=== PATIENT | female | born 1940 | race Caucasian/White ===

== ENCOUNTER → 2016-05-07 | Outpatient (CLI) | payer BC ==
[~2016-05-07] MED LIST: ASPI325T45 PO; CALC1TAB9 PO; CHOL200010 PO; FAMO20TA11 PO; MULT-506 PO; POLY335025 PO; RABE20TA5 PO; VITAMIN B12 PO
--- NOTE | 2016-05-07 15:14 | DIAGNOSTIC IMAGING REPORT ---
[facility] CLINICAL HISTORY: R10.9 Abdominal painR15.9 Bowel [id number] [id number] pain COMPARISON STUDY: 12/26/2014 FINDINGS: Nonobstructive bowel pattern. Moderate fecal material throughout the colon. No evidence for obstructive change. No small bowel distention. Chronic calcification of the splenic vasculature. IMPRESSION: No acute process. Electronically signed by: Dominic Ramos M.D. 05/07/2016 3:12 PM Dictated Date/Time: 05/07/2016 3:12 PM
== END | disposition home or self-care (01) ==
LOC: C.RAD1850 14:42
PROVIDERS: ATTEND Registered Nurse
DX: R14.0 Abdominal distension (gaseous) (principal); R15.9 Full incontinence of feces; R10.9 Unspecified abdominal pain

== ENCOUNTER → 2016-05-17 | Outpatient (CLI) | payer BC ==
[2016-05-17 16:00] LABS: BLOOD UREA NITROGEN 15 mg/dl (7-18); BUN/CREATININE RATIO 13.3 (10-20); CALCIUM 9.2 mg/dl (8.5-10.1); CARBON DIOXIDE 27 mmol/L (21-32); CHLORIDE 103 mmol/L (98-107); GLUCOSE 99 mg/dl (70-99); SODIUM 138 mmol/L (136-145)
[2016-05-17 16:05] LABS: ALB/GLOB RATIO 1.2 (0.9-2); ALKALINE PHOSPHATASE 51 U/L (45-117); ALT/SGPT 18 U/L (12-78); AST/SGOT 11 U/L (15-37)
== END | disposition home or self-care (01) ==
LOC: C.LAB1850 14:36
PROVIDERS: ATTEND Internal Medicine
DX: R10.9 Unspecified abdominal pain (principal)

== ENCOUNTER → 2016-05-20 | Outpatient (CLI) | payer BC ==
[~2016-05-20] MED LIST changes: +OPTIRAY 320 IV PRN
--- NOTE | 2016-05-20 10:51 | DIAGNOSTIC IMAGING REPORT ---
ABDOMEN AND PELVIS CT WITH IV AND ORAL CONTRAST CT DOSE: 265.40 mGy.cm HISTORY: R10.9 Abdominal painR19.4 Change in bowel [id number] TECHNIQUE: Multiaxial CT images of the abdomen and pelvis were performed following the use of intravenous and oral contrast. COMPARISON STUDY: 10/19/2012 FINDINGS: The lung bases are clear. The liver, spleen, gallbladder, pancreas, kidneys, and adrenal glands are within normal limits. No bowel wall thickening or obstruction. The pelvic organs are unremarkable. No suspicious lytic or blastic osseous lesions. The left kidney is perhaps slightly progressive atrophic as compared to the rectus is unchanged. Right renal cyst unchanged from the prior study. Bowel pattern is nonobstructive. Persistent increase in fecal load throughout the colon. No significant abdominal pelvic or inguinal adenopathy. IMPRESSION: 1. Stable right renal cyst. 2. Nonobstructive bowel pattern although persistent increase in fecal load is present. 3. No new or interval process. Electronically signed by: Dominic Ramos M.D. 05/20/2016 10:50 AM Dictated Date/Time: 05/20/2016 10:39 AM
== END | disposition home or self-care (01) ==
LOC: C.CTS 10:01
PROVIDERS: ATTEND Internal Medicine
DX: R19.4 Change in bowel habit (principal); R10.9 Unspecified abdominal pain; N28.1 Cyst of kidney, acquired; K59.00 Constipation, unspecified

== ENCOUNTER → 2016-06-14 | Day surgery (SDC) | payer BC ==
[2016-06-11 07:44] VITALS: Ht 165.1 cm; Wt 52.7 kg
[~2016-06-14] VITALS: Ht 165.1 cm; Wt 52.7 kg
[~2016-06-14] MED LIST changes: +LIDOCAINE HCL 2% 2 ML VIAL (20MG/ML) ONE; +MIDAZOLAM HCL 1 MG/ML 2ML VIAL ONE; +ONDANSETRON INJ 2 MG/ML 2 ML VIAL ONE; -OPTIRAY 320 IV PRN; +PROPOFOL IV EMULSION 10 MG/ML 20 ML VIAL IV ONE
[2016-06-14 12:45] VITALS: TEMP 36.7
--- NOTE | 2016-06-14 13:22 | Endo History and Physical ---
History & Physical Date of Service: Jun 14, 2016. Chief Complaint: CHANGE IN BOWEL HABITS, LEFT SIDED ABDOMINAL PAIN Referring Physician: DR. BYRD History of Present Illness 76 yo CF who presents for Colonoscopy secondary to Left sided abdominal pain and change in bowel habits. Past Medical History Osteoporosis, Gastrointestinal Disorder, Reflux, Cancer, High Cholesterol, Other Past Surgical History Hx Cardiac Surgery: No Hx Internal Defibrillator: No Hx Pacemaker: No Hx Abdominal Surgery: Yes (TUBAL LIGATION) Hx of Implantable Prosthesis: No Hx Post-Op Nausea and Vomiting: Yes Hx Cancer Surgery: Yes (BCC REMOVED) Hx Thoracic Surgery: No Hx Orthopedic: Yes (CALCIUM DEPOSIT REMOVAL ON RT HAND X 2) Hx Urinary Tract Surgery: No Family History None Social History Smoking Status: Never Smoker Hx Substance Use: No Hx Alcohol Use: No Allergies Coded Allergies: Fluorouracil (Unverified Allergy, Intermediate, HOT FLASHES, 06/14/16) Codeine (Verified Allergy, Mild, SICK, 06/11/16) Erythromycin (Verified Allergy, Mild, GI SYMPTOMS, 06/11/16) Meperidine (Verified Allergy, Mild, GI SYMPTOMS, 06/11/16) Esomeprazole (Verified Allergy, Unknown, HOT FLASHES, 06/11/16) Lansoprazole (Verified Allergy, Unknown, HOT FLASHES, 06/11/16) Omeprazole (Verified Allergy, Unknown, HOT FLASHES, 06/11/16) Pantoprazole (Verified Allergy, Unknown, HOT FLASHES AND HYPER, 06/11/16) Current Medications Reported Home Medications Medications Dose Route/Sig Max Daily Dose Days Date Category Pepcid (Famotidine) 20 Mg Tab 20 Mg PO HS 12/12/15 Reported [Vitamin B12] 1 Tab PO DAILY AT LUNCH 12/12/15 Reported Aspirin 325 Mg Tab 0.25 Tab PO QAM 12/12/15 Reported Vitamin D (Cholecalciferol) 2,000 Unit Cap 1 Cap PO DAILY AT LUNCH 12/12/15 Reported Citracal + D3 Maximum (Calcium Citrate-Vitamin D) 1 Tab Tab 1 Tab PO QAM 12/12/15 Reported Multivitamin (Multivitamins) Tab 1 Tab PO QAM 12/12/15 Reported Aciphex (Rabeprazole Sodium) 20 Mg Tab 1 Tab PO BID 90 12/12/15 Reported Miralax (Polyethylene Glycol 3350) 1 Pow Pow 17 Gm PO QAM PRN 10/29/13 Reported Vital Signs Weight (Kilograms): 52.73 Height (Feet): 5 Height (Inches): 5 Date Time Temp Pulse Resp B/P Pulse Ox O2 Delivery O2 Flow Rate FiO2 06/14/16 12:45 36.7 83 16 148/79 98 Room Air Physical Exam General Appearance: WD/WN, no apparent distress Respiratory/Chest: Auscultation: breath sounds normal Cardiovascular: Heart Auscultation: RRR Abdomen: Bowel Sounds: normal Inspection & Palpation: soft, non-distended, no tenderness, guarding & rebound Assessment and Plan Assessment: 76 yo CF who presents for Colonoscopy secondary to Left sided abdominal pain and change in bowel habits. Plan: Proceed with colonoscopy.
--- NOTE | 2016-06-14 13:52 | GI REPORT ---
Procedure Date: 06/14/2016 1:14 PM Procedure: Colonoscopy Indications: Generalized abdominal pain, Change in bowel habits Medicines: Monitored Anesthesia Care Complications: No immediate complications. Estimated Blood Loss: Estimated blood loss: none. Procedure: Pre-Anesthesia Assessment: - Prior to the procedure, a History and Physical was performed, and patient medications and allergies were reviewed. The patient's tolerance of previous anesthesia was also reviewed. The risks and benefits of the procedure and the sedation options and risks were discussed with the patient. All questions were answered, and informed consent was obtained. Prior Anticoagulants: The patient has taken aspirin, last dose was 3 days prior to procedure. ASA Grade Assessment: II - A patient with mild systemic disease. After reviewing the risks and benefits, the patient was deemed in satisfactory condition to undergo the procedure. After I obtained informed consent, the scope was passed under direct vision. Throughout the procedure, the patient's blood pressure, pulse, and oxygen saturations were monitored continuously. The On-site loaner was introduced through the anus and advanced to the terminal ileum. The colonoscopy was performed without difficulty. The patient tolerated the procedure well. The quality of the bowel preparation was good. The terminal ileum, ileocecal valve, appendiceal orifice, and rectum were photographed. Findings: Non-bleeding internal hemorrhoids were found during retroflexion. The hemorrhoids were small. Several random biopsies were obtained with cold forceps for histology in the entire colon. Impression: - Non-bleeding internal hemorrhoids. - Several random biopsies were obtained in the entire colon. Recommendation: - Resume previous diet. - Continue present medications. - Repeat colonoscopy for surveillance based on pathology results. - Return to primary care physician as previously scheduled. Archie Ogden, 06/14/2016 1:52:04 PM This report has been signed electronically. Note Initiated On: 06/14/2016 1:14 PM I attest to the content of the Intraoperative Record and orders documented therein, exceptions below
--- NOTE | 2016-06-14 13:53 | Anesthesiology Progress Note ---
Anesthesia Post Op Note Date & Time Jun 14, 2016 at 13:52 Vital Signs Pain Intensity: 0 Vital Signs Past 12 Hours Date Time Temp Pulse Resp B/P Pulse Ox O2 Delivery O2 Flow Rate FiO2 06/14/16 12:45 36.7 83 16 148/79 98 Room Air Notes Mental Status: alert / awake / arousable, participated in evaluation Pt Amnestic to Procedure: Yes Nausea / Vomiting: adequately controlled Pain: adequately controlled Airway Patency, RR, SpO2: stable & adequate BP & HR: stable & adequate Hydration State: stable & adequate Anesthetic Complications: no major complications apparent
--- NOTE | 2016-06-14 13:53 | Discharge Instructions ---
Endoscopy Patient Instructions Date / Procedure(s) Performed Jun 14, 2016. Colonoscopy Allergy Information Coded Allergies: Fluorouracil (Unverified Allergy, Intermediate, HOT FLASHES, 06/14/16) Codeine (Verified Allergy, Mild, SICK, 06/11/16) Erythromycin (Verified Allergy, Mild, GI SYMPTOMS, 06/11/16) Meperidine (Verified Allergy, Mild, GI SYMPTOMS, 06/11/16) Esomeprazole (Verified Allergy, Unknown, HOT FLASHES, 06/11/16) Lansoprazole (Verified Allergy, Unknown, HOT FLASHES, 06/11/16) Omeprazole (Verified Allergy, Unknown, HOT FLASHES, 06/11/16) Pantoprazole (Verified Allergy, Unknown, HOT FLASHES AND HYPER, 06/11/16) Discharge Date / Findings Jun 14, 2016. Random colon biopsies Internal hemorrhoids Medication Instructions Stopped Medication(s): ASPIRIN STOPPED 06/11/16 OK to resume all medications today as prescribed. Reported Home Medications Medications Dose Route/Sig Max Daily Dose Days Date Category Pepcid (Famotidine) 20 Mg Tab 20 Mg PO HS 12/12/15 Reported [Vitamin B12] 1 Tab PO DAILY AT LUNCH 12/12/15 Reported Aspirin 325 Mg Tab 0.25 Tab PO QAM 12/12/15 Reported Vitamin D (Cholecalciferol) 2,000 Unit Cap 1 Cap PO DAILY AT LUNCH 12/12/15 Reported Citracal + D3 Maximum (Calcium Citrate-Vitamin D) 1 Tab Tab 1 Tab PO QAM 12/12/15 Reported Multivitamin (Multivitamins) Tab 1 Tab PO QAM 12/12/15 Reported Aciphex (Rabeprazole Sodium) 20 Mg Tab 1 Tab PO BID 90 12/12/15 Reported Miralax (Polyethylene Glycol 3350) 1 Pow 17 Gm PO QAM PRN 10/29/13 Reported Provider Instructions Activity Restrictions - No exercising or heavy lifting for 24 hours. - Do not drink alcohol the day of the procedure. - Do not drive a car or operate machinery until the day after the procedure. - Do not make any important decisions or sign important papers in 24 hours after the procedure. Following Day: - Return to full activity which may include returning to work/school. Diet Start your diet with liquids and light foods (jello, soup, juice, toast). Then eat your usual diet if not nauseated. Treatment For Common After Affects For mild abdominal pain, bloating, or excessive gas: - Rest - Eat lightly - Lie on right side Follow-Up Information Follow-up with DR. BYRD as scheduled Anesthesia Information What You Should Know You have had a procedure that required some medicine to reduce anxiety and discomfort. This treatment is called moderate sedation. After receiving the treatment, you may be sleepy, but you will be able to breathe on your own. The effects of the treatment may last for several hours. Follow these instructions along with Activity/Diet recommendations noted above: * Do NOT do anything where dizziness or clumsiness would be dangerous. * Rest quietly at home today, then you can be up and about tomorrow. * Have a responsible person stay with you the rest of today. * You may have had an I.V. today. If so, you may take the dressing off later today. Recommendations Call your doctor if: * Trouble breathing * Continuous vomiting for more than 24 hours * Temperature above 101 degrees * Severe abdominal pain or bloating * Pain not relieved by pain medicine ordered * There is increased drainage or redness from any incision * A large amount of rectal bleeding greater than 2-3 tablespoons. (If you had a polyp/s removed or have hemorrhoids, a small amount of blood - from the rectum is to be expected.) * You have any unanswered questions or concerns. IN THE EVENT OF A SERIOUS EMERGENCY, GO TO THE NEAREST EMERGENCY ROOM Your discharge instructions were prepared by provider Archie Ogden. Patient Instructions Signature Page Mercedes Lyndsay Patient (or Guardian) Signature/Date: I have read and understand the instructions given to me by my caregivers. Caregiver/RN/Doctor Signature/Date: The above-named patient and/or guardian has received patient instructions on this date. + Original Patient Signature Page (only) stays with chart. Please make copy for patient.
[2016-06-14 14:15] VITALS: BP 119/61; PULSE 64; O2SAT 95
== END | disposition home or self-care (01) ==
LOC: C.GI 12:02
PROVIDERS: ATTEND Internal Medicine
DX: R19.4 Change in bowel habit (principal); R10.9 Unspecified abdominal pain; K64.8 Other hemorrhoids; M81.0 Age-related osteoporosis without current pathological fracture; K21.9 Gastro-esophageal reflux disease without esophagitis; Z98.51 Tubal ligation status; Z85.820 Personal history of malignant melanoma of skin; Z88.8 Allergy status to other drugs, medicaments and biological substances; Z88.5 Allergy status to narcotic agent; Z88.1 Allergy status to other antibiotic agents

== ENCOUNTER → 2016-10-12 | Outpatient (CLI) | payer BC ==
[~2016-10-12] MED LIST changes: -LIDOCAINE HCL 2% 2 ML VIAL (20MG/ML) ONE; -MIDAZOLAM HCL 1 MG/ML 2ML VIAL ONE; -ONDANSETRON INJ 2 MG/ML 2 ML VIAL ONE; -PROPOFOL IV EMULSION 10 MG/ML 20 ML VIAL IV ONE
--- NOTE | 2016-10-12 13:07 | MAMMOGRAPHY REPORT ---
BILATERAL DIGITAL SCREENING MAMMOGRAM WITH CAD: 10/12/2016 CLINICAL HISTORY: Routine screening. Patient has no complaints. TECHNIQUE: Bilateral CC and MLO views were obtained. Current study was also evaluated with a Compute r Aided Detection (CAD) system. COMPARISON: Comparison is made to exams dated: 10/07/2015 mammogram, 10/01/2014 mammogram, 09/11/2013 ma mmogram, 09/05/2012 mammogram, 08/31/2011 mammogram, and 08/25/2010 mammogram - [facility] ter. BREAST COMPOSITION: The tissue of both breasts is heterogeneously dense, which may obscure small mas ses. FINDINGS: There are benign coarse and rim calcifications in the breasts. A stable lobulated and circ umscribed 10 mm mass in the upper inner quadrant of the left breast is unchanged in size and appearan ce dating back to at least 06/20/2007, therefore likely benign. No new suspicious mass, architectura l distortion or cluster of microcalcifications is seen. IMPRESSION: ACR BI-RADS CATEGORY 1: NEGATIVE There is no mammographic evidence of malignancy. A 1 year screening mammogram is recommended. The pa tient will receive written notification of the results. Approximately 10% of breast cancers are not detected with mammography. A negative mammographic report should not delay biopsy if a clinically suggestive mass is present. Julia Balderrama M.D. ay/:10/12/2016 10:01:41 Credit Controller: Aaliyah JAMES(Rylee)(Xavier)(BD), [facility] letter sent: Normal 1/2 BI-RADS Code: ACR BI-RADS Category 1: Negative
== END | disposition home or self-care (01) ==
LOC: C.MAMM 09:33
PROVIDERS: ATTEND Family Medicine
DX: Z12.31 Encounter for screening mammogram for malignant neoplasm of breast (principal)

== ENCOUNTER → 2016-11-24 | Outpatient (CLI) | payer BC ==
--- NOTE | 2016-11-24 09:25 | DIAGNOSTIC IMAGING REPORT ---
RIGHT HIP UNILATERAL 2 VIEWS HISTORY: 76 years-old Female acute right-sided hip pain. COMPARISON: KUB 05/07/2016 TECHNIQUE: 2 views of the right hip. FINDINGS: The bones are mildly demineralized. Mild degenerative changes involve the right femoral acetabular joint. There is no acute fracture or dislocation. Probable phleboliths are seen within the right hemipelvis. Negative for opaque foreign body. IMPRESSION: 1. Mild right hip osteoarthritis without acute bony abnormality. 2. Mild background bone demineralization. The above report was generated using voice recognition software. It may contain grammatical, syntax or spelling errors. Electronically signed by: Dario Guardado M.D. 11/24/2016 9:24 AM Dictated Date/Time: 11/24/2016 9:22 AM
== END | disposition home or self-care (01) ==
LOC: C.RAD 09:07
PROVIDERS: ATTEND Family Medicine
DX: M25.551 Pain in right hip (principal)

== ENCOUNTER → 2016-12-28 | Outpatient (CLI) | payer BC ==
[2016-12-28 12:20] LABS: HEMATOCRIT 41.2 % (37-47); MEAN CELL VOLUME 91.2 fL (80-100); MEAN CORPUSCULAR HEMOGLOBIN 30.1 pg (25-34); MEAN PLATELET VOLUME 9.6 fL (7.4-10.4); PLATELET COUNT 230 K/uL (130-400); RED BLOOD COUNT 4.52 M/uL (4.2-5.4); WHITE BLOOD COUNT 6.09 K/uL (4.8-10.8)
[2016-12-28 12:43] LABS: ALT/SGPT 18 U/L (12-78); AST/SGOT 13 U/L (15-37); BLOOD UREA NITROGEN 15 mg/dl (7-18); BUN/CREATININE RATIO 15.2 (10-20); CALCIUM 9.3 mg/dl (8.5-10.1); CARBON DIOXIDE 28 mmol/L (21-32); CHLORIDE 104 mmol/L (98-107); CREATININE 0.98 mg/dl (0.60-1.20); GLUCOSE 133 mg/dl (70-99); POTASSIUM 4.3 mmol/L (3.5-5.1); SODIUM 137 mmol/L (136-145)
[2016-12-28 12:46] LABS: ALB/GLOB RATIO 1.2 (0.9-2); ALKALINE PHOSPHATASE 50 U/L (45-117)
== END | disposition home or self-care (01) ==
LOC: C.CPL 10:00
PROVIDERS: ATTEND Internal Medicine Gastroenterology
DX: K31.84 Gastroparesis (principal); R00.1 Bradycardia, unspecified

== ENCOUNTER → 2017-07-13 | Outpatient (CLI) | payer BC ==
[~2017-07-13] MED LIST changes: +ASPECOTC PO; -ASPI325T45 PO
--- NOTE | 2017-07-13 14:35 | ECHOCARDIOGRAM REPORT ---
*NOTICE TO RECEIVING LIBERTARIAN AGENCY This information is strictly Confidential and protected under [place] law. [place] law prohibits you from making any further disclosure of this information unless further disclosure is expressly permitted by the written consent of the person to whom it pertains or is authorized by law. A general authorization for the release of medical or other information is not sufficient for this purpose. Hospital accepts no responsibility if the information is made available to any other person, INCLUDING THE PATIENT. Interpretation Summary * Name: GIULIANA JOHNSON V Study Date: 07/13/2017 12:35 PM BP: 150/60 mmHg * Patient Location: [facility] HR: 71 * : 1940 (M/d/yyyy) Gender: Female Height: 65 in * Age: 77 yrs Ethnicity: CA Weight: 120 lb * Ordering Physician: Jacque Gooden * Referring Physician: Nelson Napoles * Performed By: Sole Miller RDCS * * Reason For Study: SCLERODERMA * BSA: 1.6 m2 * -- Conclusions -- * 1. Normal LV size. Normal LV wall thickness. * 2. Normal LV systolic function. LVEF 55-60 %. No regional wall motion abnormalities. * 3. Borderline RV dilation, normal RV function. * 4. Calcified nodule on anterior leaflet of mitral valve. Trace mitral regurgitation * 5. Normal estimated PA and RA pressures. * 6. Compared with prior study on 07/29/2014: No significant change Procedure Details * A complete two-dimensional transthoracic echocardiogram was performed (2D, M-mode, Doppler and color flow Doppler). Left Ventricle * The left ventricle is grossly normal size. * There is normal left ventricular wall thickness. * Ejection Fraction = 60-65%. Right Ventricle * Borderline right ventricular enlargement. * The right ventricular systolic function is normal as assessed by tricuspid annular plane systolic excursion (TAPSE) (normal >1.5 cm). Atria * The left atrial size is normal. * The right atrium is mildly dilated. * Lipomatous hypertrophy of the interatrial septum is noted. * No ASD detected; PFO is not assessed. Mitral Valve * The mitral valve leaflets appear thickened, but open well. * There is mild mitral annular calcification. * Calcified nodule on anterior leaflet of mitral valve * There is no mitral valve stenosis. * There is trace mitral regurgitation. Tricuspid Valve * There is trace tricuspid regurgitation. Aortic Valve * The aortic valve opens well. * The aortic valve is trileaflet. * No hemodynamically significant valvular aortic stenosis. * There is no significant aortic regurgitation. Pulmonic Valve * The pulmonic valve is not well seen, but is grossly normal. * Trace pulmonic valvular regurgitation. Great Vessels * The aortic root and proximal ascending aorta are normal sized. Pericardium/Pleural * There is no pericardial effusion. Great Vessels * Normal inferior vena cava size and collapsability with sniff indicates a normal right atrial pressure of 3 mmHg * There is no evidence of pulmonary hypertension. The PA systolic pressure is less than 36 mmHg. MMode 2D Measurements and Calculations IVSd 0.97 cm IVSs 1.5 cm LVIDd 4.1 cm LVIDs 2.7 cm LVPWd 1.1 cm LVPWs 1.5 cm IVS/LVPW 0.90 FS 33.1 % EDV(Teich) 72.9 ml ESV(Teich) 27.5 ml EF(Teich) 62.2 % EDV(cubed) 67.4 ml ESV(cubed) 20.2 ml EF(cubed) 70.1 % % IVS thick 50.0 % % LVPW thick 41.1 % LV mass(C)d 136.1 grams LV mass(C)dI 85.5 grams/m\S\2 LV mass(C)s 139.0 grams LV mass(C)sI 87.3 grams/m\S\2 SV(Teich) 45.4 ml SI(Teich) 28.5 ml/m\S\2 SV(cubed) 47.2 ml SI(cubed) 29.7 ml/m\S\2 Ao root diam 3.1 cm Ao root area 7.7 cm\S\2 LA dimension 3.1 cm LA/Ao 10 LVAd ap4 20.1 cm\S\2 LVLd ap4 6.7 cm EDV(MOD-sp4) 50.9 ml EDV(sp4-el) 51.2 ml LVAs ap4 11.5 cm\S\2 LVLs ap4 5.7 cm ESV(MOD-sp4) 19.3 ml ESV(sp4-el) 19.6 ml EF(MOD-sp4) 62.0 % EF(sp4-el) 61.7 % LVAd ap2 19.9 cm\S\2 LVLd ap2 6.7 cm EDV(MOD-sp2) 47.3 ml EDV(sp2-el) 50.2 ml LVAs ap2 11.9 cm\S\2 LVLs ap2 6.1 cm ESV(MOD-sp2) 19.3 ml ESV(sp2-el) 19.6 ml EF(MOD-sp2) 59.1 % EF(sp2-el) 60.9 % LVLd %diff -0.49 % EDV(MOD-bp) 49.5 ml LVLs %diff 5.6 % ESV(MOD-bp) 19.5 ml EF(MOD-bp) 60.6 % SV(MOD-sp4) 31.5 ml SI(MOD-sp4) 19.8 ml/m\S\2 SV(MOD-sp2) 28.0 ml SI(MOD-sp2) 17.6 ml/m\S\2 SV(MOD-bp) 30.0 ml SI(MOD-bp) 18.8 ml/m\S\2 SV(sp4-el) 31.6 ml SI(sp4-el) 19.8 ml/m\S\2 SV(sp2-el) 30.6 ml SI(sp2-el) 19.2 ml/m\S\2 Doppler Measurements and Calculations MV E max oscar 104.1 cm/sec MV A max oscar 112.2 cm/sec MV E/A 0.93 MV dec time 0.22 sec Ao V2 max 140.6 cm/sec Ao max PG 7.9 mmHg Ao max PG (full) 4.0 mmHg LV V1 max PG 3.9 mmHg LV V1 max 98.7 cm/sec TR max oscar 224.2 cm/sec
== END | disposition home or self-care (01) ==
LOC: C.CPL 12:23
PROVIDERS: ATTEND Internal Medicine Rheumatology
DX: M34.1 CR(E)ST syndrome (principal)

== ENCOUNTER 2017-08-12 12:55 | Emergency (ER) | payer BC ==
[~2017-08-12] VITALS: Ht 165.1 cm; Wt 55.7 kg
[~2017-08-12 12:55] MED LIST changes: +DOMPERIDONE PO; +LUBI8CAP4 PO
[2017-08-12 12:59] VITALS: TEMP 36.7; Ht 165.1 cm; Wt 55.7 kg
[2017-08-12 13:10] VITALS: O2SAT 97
--- NOTE | 2017-08-12 13:15 | EMERGENCY ROOM VISIT NOTE ---
History Report prepared by Carson: Josiah Obregon Under the Supervision of: Dr. Sunil Cooper D.O. First contact with patient: 13:04 Chief Complaint: CHEST PAIN Stated Complaint: CHEST PAIN History of Present Illness The patient is a 77 year old female who presents to the Emergency Room with complaints of a waxing and waning pain in the left side of her chest, under her left breast that onset shortly prior to arrival. The patient describes the pain as a "pinching" feeling. She states that the pain fist onset for about 4-5 minutes, and then resolved. The pain then returned again on her ride to the ED, but the pain is now completely resolved. There is nothing that seems to precipitate the pain. The patient notes that her symptoms began when she was doing yard work earlier today. 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 She denies any abdominal pain, shortness of breath, or nausea /vomiting. Source of History: patient Onset: shortly GED TEACHER Position: chest (left) Quality: other (pinching) Timing: waxes/wanes, resolved Associated Symptoms: No chest pain, No SOB Review of Systems See HPI for pertinent positives & negatives. A total of 10 systems reviewed and were otherwise negative. Past Medical & Surgical Hx of Scleroderma, Raynaud's. Family History Omitted secondary to age. Social History Smoking Status: Never Smoker Marital Status: Housing Status: lives with family Occupation Status: retired Current/Historical Medications Scheduled Aspirin (Aspirin), 0.25 TAB PO QAM Calcium Citrate-Vitamin D (Citracal + D3 Maximum), 1 TAB PO QAM Cholecalciferol (Vitamin D), 1 CAP PO QAM Cyanocobalamin (Vitamin B12), 1,000 MCG PO DAILY Famotidine (Pepcid), 20 MG PO HS Lubiprostone (Amitiza), 1 CAP PO BID Multivitamin (Multivitamin), 1 TAB PO QAM Rabeprazole Sodium (Aciphex), 1 TAB PO BID [Domperidone], PO TIDM Allergies Coded Allergies: Fluorouracil (Unverified Allergy, Intermediate, HOT FLASHES, 08/12/17) Codeine (Verified Allergy, Mild, SICK, 08/12/17) Erythromycin (Verified Allergy, Mild, GI SYMPTOMS, 08/12/17) Meperidine (Verified Allergy, Mild, GI SYMPTOMS, 08/12/17) Esomeprazole (Verified Allergy, Unknown, HOT FLASHES, 08/12/17) Lansoprazole (Verified Allergy, Unknown, HOT FLASHES, 08/12/17) Omeprazole (Verified Allergy, Unknown, HOT FLASHES, 08/12/17) Pantoprazole (Verified Allergy, Unknown, HOT FLASHES AND HYPER, 08/12/17) Physical Exam Vital Signs Date Time Temp Pulse Resp B/P (MAP) Pulse Ox O2 Delivery O2 Flow Rate FiO2 08/12/17 13:30 73 20 141/90 99 Room Air 08/12/17 13:18 80 08/12/17 13:10 97 Room Air 08/12/17 13:10 97 Room Air 08/12/17 13:10 97 Room Air 08/12/17 12:59 36.7 91 16 152/83 96 Room Air Physical Exam GENERAL: Patient is awake, alert, and in no acute distress. Patient is resting comfortably and showing no signs of anxiety EYES: The conjunctivae are clear. The pupils are round and reactive. EARS, NOSE, MOUTH AND THROAT: The nose is without any evidence of any deformity. Mucous membranes are moist tongue is midline NECK: The neck is nontender and supple. RESPIRATORY: Normal respiratory effort is noted there is no evidence of wheezing rhonchi or rales CARDIOVASCULAR: Regular rate and rhythm noted there no murmurs rubs or gallops normal S1 normal S2 GASTROINTESTINAL: The abdomen is soft. Bowel sounds are present in all quadrants. Abdomen is nontender MUSCULOSKELETAL/EXTREMITIES: There is no evidence of gross deformity full range of motion is noted in the hips and shoulders SKIN: There is no obvious evidence of any rash. There are no petechiae, pallor or cyanosis noted. NEUROLOGIC: Patient is awake alert and oriented x3 Heart Score: 4 Medical Decision & Procedures ER Provider Diagnostic Interpretation: Radiology results as stated below per my review and radiologist interpretation: CHEST ONE VIEW PORTABLE CLINICAL HISTORY: 77 years-old Female presenting with CHEST PAIN. TECHNIQUE: Portable upright AP view of the chest was obtained. COMPARISON: 12/26/2014. FINDINGS: Atherosclerosis of aortic arch. Cardiac silhouette mildly enlarged. No focal opacity. No large effusion or pneumothorax. Osseous structures normal. Upper abdomen normal. IMPRESSION: 1. Mild cardiomegaly. No other convincing evidence of acute cardiopulmonary disease. Electronically signed by: Dayton Patel M.D. 08/12/2017 1:34 PM Dictated Date/Time: 08/12/2017 1:33 PM Laboratory Results 08/12/17 13:15 Red Blood Count 4.11, Mean Corpuscular Volume 89.8, Mean Corpuscular Hemoglobin 31.4, Mean Corpuscular Hemoglobin Concent 35.0, Mean Platelet Volume 8.9, Neutrophils (%) (Auto) 57.6, Lymphocytes (%) (Auto) 23.3, Monocytes (%) (Auto) 12.9, Eosinophils (%) (Auto) 4.7, Basophils (%) (Auto) 1.3, Neutrophils # (Auto ) 3.59, Lymphocytes # (Auto) 1.45, Monocytes # (Auto) 0.80, Eosinophils # (Auto ) 0.29, Basophils # (Auto) 0.08 08/12/17 13:15 Test 08/12/17 13:15 08/12/17 13:25 White Blood Count 6.22 K/uL (4.8-10.8) Red Blood Count 4.11 M/uL (4.2-5.4) Hemoglobin 12.9 g/dL (12.0-16.0) Hematocrit 36.9 % (37-47) Mean Corpuscular Volume 89.8 fL (80-100) Mean Corpuscular Hemoglobin 31.4 pg (25-34) Mean Corpuscular Hemoglobin Concent 35.0 g/dl (32-36) Platelet Count 203 K/uL (130-400) Mean Platelet Volume 8.9 fL (7.4-10.4) Neutrophils (%) (Auto) 57.6 % Lymphocytes (%) (Auto) 23.3 % Monocytes (%) (Auto) 12.9 % Eosinophils (%) (Auto) 4.7 % Basophils (%) (Auto) 1.3 % Neutrophils # (Auto) 3.59 K/uL (1.4-6.5) Lymphocytes # (Auto) 1.45 K/uL (1.2-3.4) Monocytes # (Auto) 0.80 K/uL (0.11-0.59) Eosinophils # (Auto) 0.29 K/uL (0-0.5) Basophils # (Auto) 0.08 K/uL (0-0.2) RDW Standard Deviation 44.2 fL (36.4-46.3) RDW Coefficient of Variation 13.4 % (11.5-14.5) Immature Granulocyte % (Auto) 0.2 % Immature Granulocyte # (Auto) 0.01 K/uL (0.00-0.02) Prothrombin Time 10.9 SECONDS (9.0-12.0) Prothromb Time International Ratio 1.0 (0.9-1.1) Activated Partial Thromboplast Time 26.1 SECONDS (21.0-31.0) Partial Thromboplastin Ratio 1.0 Anion Gap 5.0 mmol/L (3-11) Est Creatinine Clear Calc Drug Dose 35.1 ml/min Estimated GFR () 51.5 Estimated GFR (Non- 44.5 BUN/Creatinine Ratio 13.6 (10-20) Calcium Level 8.9 mg/dl (8.5-10.1) Total Bilirubin 0.3 mg/dl (0.2-1) Direct Bilirubin < 0.1 mg/dl (0-0.2) Aspartate Amino Transf (AST/SGOT) 18 U/L (15-37) Alanine Aminotransferase (ALT/SGPT) 19 U/L (12-78) Alkaline Phosphatase 49 U/L (45-117) Total Protein 7.2 gm/dl (6.4-8.2) Albumin 3.8 gm/dl (3.4-5.0) Lipase 190 U/L (73-393) Bedside D-Dimer 262 ng/mlFEU (0-450) Bedside Troponin I < 0.030 ng/ml (0-0.045) Laboratory results per my review. ECG Per My Interpretation Indication: chest pain Rate (beats per minute): 88 Rhythm: sinus rhythm Findings: nonspecific-ST abn (Inferior and lateral leads) Comparison ECG Date: 12-28-2016 Change: no significant change ED Course 1306: The patient was evaluated in room B3B. A complete history and physical examination were performed. 1401: Upon reevaluation, the patient is resting in bed. I discussed the results and treatment plan with her. She verbalized agreement of the treatment plan. the patient was discharged home. Medical Decision Differential diagnosis: Etiologies such as cardiac ischemia, aortic dissection, pulmonary embolism, pneumonia, pneumothorax, musculoskeletal, infections, pericarditis, myocarditis , esophageal rupture, gastrointestinal, as well as others were entertained. Nursing notes reviewed. The patient is a 77-year-old female who presented to emergency department for an evaluation of chest pain. The patient describes very atypical sounding chest pain with a pinching sensation under her left breast. It was somewhat pleuritic but it was not completely reproducible. I discussed patient's laboratory and radiographic studies with her. I also discussed the limitations of the emergency department workup for chest pain with her. At this time her d- dimer and troponin were negative. Her EKG appears very similar to her previous EKG. I discussed options with her including observation in the hospital for further cardiac workup but the patient wished to follow-up with her primary care physician to schedule outpatient testing such as stress testing. She was encouraged to rest and avoid any strenuous activity. I also encouraged her to continue all medications as prescribed. Otherwise she was encouraged to return the emergency department immediately if symptoms change worsen or the need arises. Medication Reconcilliation Current Medication List: was personally reviewed by me Blood Pressure Screening Patient's blood pressure: Elevated blood pressure Impression Primary Impression: Chest pain Scribe Attestation The scribe's documentation has been prepared under my direction and personally reviewed by me in its entirety. I confirm that the note above accurately reflects all work, treatment, procedures, and medical decision making performed by me. Departure Information Dispostion Home / Self-Care Referrals Shanita Graham D.O. (PCP) Patient Instructions My [facility] Problem Qualifiers Primary Impression: Chest pain Chest pain type: unspecified Qualified Codes: R07.9 - Chest pain, unspecified
[2017-08-12 13:32] LABS: BASO % 1.3 %; BASO ABS # 0.08 K/uL (0-0.2); EOS % 4.7 %; EOS ABS # 0.29 K/uL (0-0.5); HEMATOCRIT 36.9 % (37-47); HEMOGLOBIN 12.9 g/dL (12.0-16.0); IG# 0.01 K/uL (0.00-0.02); LYMPH % 23.3 %; LYMPH ABS # 1.45 K/uL (1.2-3.4); MEAN CELL VOLUME 89.8 fL (80-100); MEAN CORPUSCULAR HEMOGLOBIN 31.4 pg (25-34); MEAN PLATELET VOLUME 8.9 fL (7.4-10.4); MONO % 12.9 %; NEUT % 57.6 %; NEUT ABS # 3.59 K/uL (1.4-6.5); PLATELET COUNT 203 K/uL (130-400); RED CELL DISTRIBUTION WIDTH CV 13.4 % (11.5-14.5); RED CELL DISTRIBUTION WIDTH SD 44.2 fL (36.4-46.3); WHITE BLOOD COUNT 6.22 K/uL (4.8-10.8)
--- NOTE | 2017-08-12 13:35 | DIAGNOSTIC IMAGING REPORT ---
CHEST ONE VIEW PORTABLE CLINICAL HISTORY: 77 years-old Female presenting with CHEST PAIN. TECHNIQUE: Portable upright AP view of the chest was obtained. COMPARISON: 12/26/2014. FINDINGS: Atherosclerosis of aortic arch. Cardiac silhouette mildly enlarged. No focal opacity. No large effusion or pneumothorax. Osseous structures normal. Upper abdomen normal. IMPRESSION: 1. Mild cardiomegaly. No other convincing evidence of acute cardiopulmonary disease. Electronically signed by: Dayton Patel M.D. 08/12/2017 1:34 PM Dictated Date/Time: 08/12/2017 1:33 PM
[2017-08-12 13:43] LABS: PTT PATIENT 26.1 SECONDS (21.0-31.0)
[2017-08-12 13:51] LABS: ALBUMIN 3.8 gm/dl (3.4-5.0); ALKALINE PHOSPHATASE 49 U/L (45-117); ALT/SGPT 19 U/L (12-78); AST/SGOT 18 U/L (15-37); BLOOD UREA NITROGEN 16 mg/dl (7-18); CALCIUM 8.9 mg/dl (8.5-10.1); CARBON DIOXIDE 28 mmol/L (21-32); CREATININE 1.18 mg/dl (0.60-1.20); GLUCOSE 91 mg/dl (70-99); LIPASE 190 U/L (73-393); POTASSIUM 4.2 mmol/L (3.5-5.1); SODIUM 138 mmol/L (136-145); TOTAL PROTEIN 7.2 gm/dl (6.4-8.2)
[2017-08-12 14:05] VITALS: BP 127/67; PULSE 78; O2SAT 99
[2017-08-12] MEDS ORDERED: CYAN100020 PO (14:13)
== END 2017-08-12 14:13 | disposition home or self-care (01) ==
LOC: C.EDB 12:56
DX: R07.9 Chest pain, unspecified (principal); I73.00 Raynaud's syndrome without gangrene; Z79.82 Long term (current) use of aspirin; Z79.899 Other long term (current) drug therapy; Z88.8 Allergy status to other drugs, medicaments and biological substances; Z88.5 Allergy status to narcotic agent; Z88.1 Allergy status to other antibiotic agents

== ENCOUNTER → 2017-10-18 | Outpatient (CLI) | payer BC ==
[~2017-10-18] MED LIST changes: +CYAN100020 PO; -POLY335025 PO; -VITAMIN B12 PO
--- NOTE | 2017-10-20 07:56 | MAMMOGRAPHY REPORT ---
BILATERAL DIGITAL SCREENING MAMMOGRAM TOMOSYNTHESIS WITH CAD: 10/18/2017 CLINICAL HISTORY: Routine screening. Patient has no complaints. TECHNIQUE: The study was acquired using full field digital technology and interpreted from soft copy. Breast tomosynthesis in addition to standard 2D mammography was performed. Current study was also ev aluated with a Computer Aided Detection (CAD) system. COMPARISON: Comparison is made to exams dated: 10/12/2016 mammogram, 10/07/2015 mammogram, 10/01/2014 ma mmogram, 09/11/2013 mammogram, 09/05/2012 mammogram, and 08/31/2011 mammogram - [facility] ter. BREAST COMPOSITION: The tissue of both breasts is heterogeneously dense, which may obscure small mass es. FINDINGS: The parenchymal pattern is similar to prior mammograms. There is a stable lobulated mass in the medi al left breast. Scattered benign rim calcifications. No developing mass, architectural distortion o r cluster of suspicious microcalcifications is seen in either breast. IMPRESSION: ACR BI-RADS CATEGORY 2: BENIGN There is no mammographic evidence of malignancy. A 1 year screening mammogram is recommended.( 019) The patient will receive written notification of the results. Some breast cancers are not detected with mammography. A negative mammographic report should not tatiana y biopsy if a clinically suggestive mass is present. Julia Balderrama M.D. ay/:10/18/2017 21:52:58 Loss Prevention Auditor: Aaliyah Wu, RT(R)(M)(BD), [facility] letter sent: Normal 1/2 BI-RADS Code: ACR BI-RADS Category 2: Benign
== END | disposition home or self-care (01) ==
LOC: C.MAMM 08:42
PROVIDERS: ATTEND Family Medicine
DX: Z12.31 Encounter for screening mammogram for malignant neoplasm of breast (principal)

== ENCOUNTER 2022-11-30 14:20 | Observation (INO) ==
[2022-11-30 15:23] LABS: Basophils # (auto) 0.05 K/uL (0.00-0.20); Basophils % (auto) 0.7 %; Eosinophils # (auto) 0.08 K/uL (0.00-0.50); Eosinophils % (auto) 1.1 %; Hematocrit (blood only) 36.6 % (37.0-47.0); Hemoglobin 12.8 g/dl (12.0-16.0); Immature Granulocytes # (auto) 0.02 K/uL (0.01-0.20); Immature Granulocytes % (auto) 0.3 %; Lymphocytes # (auto) 1.82 K/uL (1.20-3.40); Lymphocytes % (auto) 25.6 %; Mean Corpuscular Hemoglobin 30.7 pg (25.0-34.0); Mean Corpuscular Volume 87.8 fL (80.0-100.0); Mean Platelet Volume 9.1 fL (9.4-12.4); Monocytes # (auto) 0.78 K/uL (0.11-0.59); Neutrophils # (auto) 4.37 K/uL (1.40-6.50); Neutrophils % (auto) 61.3 %; Platelet Count 226 K/uL (130-400); RDW Coefficient of Variation 13.2 % (11.5-14.5); RDW Standard Deviation 42.2 fL (36.4-46.3); Red Blood Count 4.17 M/uL (4.20-5.40); White Blood Count 7.12 K/ul (4.8-10.8)
[2022-11-30 15:59] LABS: Alanine Aminotransferase 12 U/L (7-52); Albumin Globulin Ratio 1.7 (0.9-2); Albumin Level 4.2 gm/dl (3.4-5.0); Alkaline Phosphatase 37 U/L (34-104); Anion Gap 6 (3-11); BUN Creatinine Ratio 12.2 (10-20); Bilirubin,Total 0.5 mg/dl (0.2-1.0); Blood Urea Nitrogen 11 mg/dl (6-23); Calcium 9.3 mg/dl (8.6-10.3); Carbon Dioxide 25 mmol/L (21-32); Chloride 96 mmol/L (98-107); Creatinine Clr Calc Pharmacy 41.2 ml/min; Est GFR (Non-African American) 59.5 ml/min; Globulin 2.5 gm/dl (2.5-4.0); Glucose 133 mg/dl (70-99(Fasting)); Lipase 27 U/L (11-82); Sodium 127 mmol/L (136-145); Total Protein 6.7 gm/dl (6.0-8.3)
[2022-11-30 16:50] LABS: Appearance Urine Clear (Clear); Bacteria Urine Automated Negative (Negative); Bilirubin Urine Negative (Negative); Blood Urine Negative (Negative); Cast Urine Automated 0 /lpf (0-5); Color Urine Yellow; Glucose Urine UA Negative (Negative); Ketones Urine Negative (Negative); Leukocyte Esterase Urine Trace (Negative); Nitrite Urine Negative (Negative); Protein Urine Negative (Negative); RBC Urine Automated 0-4 /hpf (0-4); Specific Gravity Urine 1.004 (1.000-1.030); Urobilinogen Urine Negative (Negative); pH Urine 7.5 (4.5-7.5)
[2022-11-30] MEDS ORDERED: SODIUM CHLORIDE 0.9% 1,000 ML IV ONE (18:30)
--- NOTE | 2022-11-30 18:33 | Emergency Department Note ---
Impression & Plan Diarrhea, Acute hyponatremia ED Provider Note NAME: GIULIANA JOHNSON AGE: 82 SEX: F : 1940 ARRIVES VIA: Walk-In INFORMANT: Patient ED PROVIDER(S): Sandeep Aguillon DO CHIEF COMPLAINT: abdominal pain and diarrhea HPI: Patient is an 80-year-old female who presents to the ER for past medical history of gastroparesis and GERD with lower abdominal pain. She admits to diarrhea present since the . She goes multiple times a day mainly at night. She denies any headache or change in vision but notes that she feels very weak and rundown. She is unsteady on her feet. No dysuria, urgency, or frequency. No other exacerbating or remitting factors. PAST MEDICAL HISTORY:See Below PAST SURGICAL HISTORY:See Below FAMILY HISTORY:See Below SOCIAL HISTORY:See Below HOME MEDICATIONS:See Below ALLERGIES:See Below VITALS:See Below PHYSICAL EXAMINATION: GENERAL: Sitting up in bed, alert, well appearing, well nourished, no distress, non-toxic EYE EXAM: normal conjunctiva. OROPHARYNX: no exudate, no erythema, lips, buccal mucosa, and tongue normal and mucous membranes are moist NECK: supple, no nuchal rigidity, no adenopathy, non-tender LUNGS: Clear to auscultation. Normal chest wall mechanics HEART: no murmurs, S1 normal and S2 normal ABDOMEN: abdomen soft, non-tender, normo-active bowel sounds, no masses, no rebound or guarding. UPPER EXTREMITIES: upper extremities are grossly normal. LOWER EXTREMITIES: No pitting edema. NEURO EXAM: Normal sensorium, cranial nerves II-XII grossly intact, normal speech, no gross weakness of arms, no gross weakness of legs. MEDICAL DECISION MAKING: Patient is an 82-year-old female who presents ER for above-stated complaint. IV was established blood work was obtained. Labs show no significant leukocytosis or anemia. BMP with mild hyponatremia 127. LFTs bilirubin and lipase was unremarkable. UA was clean. CT abdomen pelvis showed no acute pathology. Patient was given IV fluids updated bedside discussed with the hospitalist for further evaluation of hyponatremia and weakness likely associated to diarrhea. Triage Nursing notes reviewed. Limited review of prior medical records performed Vital Signs: reviewed and remarkable for HTN Differential diagnosis: Differential diagnoses includes but is not limited to gastritis, peptic ulcer disease, GERD, gallbladder disease, pancreatitis, small bowel obstruction, appendicitis, diverticulitis, hernia, urinary tract infection, torsion, perforation, trauma, infectious. ER treatment provided: See below Diagnostics interpreted by me include EKG and cardiac monitoring as listed below: -Cardiac Monitoring: An order was placed for continuous cardiac monitoring. The monitor shows a rate of 70 with sinus rhythm. -ECG: none -Laboratory studies:Interpreted by me as stated above in MDM and shown below. Imaging studies: Xrays: As interpreted by me:none CTs show: CT abdomen pelvis per my read showed no obvious obstruction CT abdomen pelvis per radiology showed no acute pathology Consultation(s): As described in MDM Procedures:none Critical Care: None Past Med/Surg History Medical History Acute bronchitis Calcinosis cutis Esophageal dyskinesia Esophageal ulcer Fracture of finger, closed Gastritis History of basal cell cancer History of esophageal ulcer History of migraine headaches History of squamous cell carcinoma Internal hemorrhoids Nausea and vomiting after administration of anesthetic agent Surgical History H/O vaginal hysterectomy History of cataract surgery History of colonoscopy History of esophagogastroduodenoscopy (EGD) History of hand surgery History of Mohs micrographic surgery for skin cancer History of tubal ligation History of wisdom tooth extraction Family History Sister Ulcerative colitis Denies family history of Crohn's disease Colorectal cancer Social History Smoking Status: Never smoker Second Hand Exposure: Yes; Do You Dip or Chew Tobacco: No; Hx Alcohol Use: No Hx Substance Use: No Preferred Language: Serbian Communication Ability: Effective Culinary Assistant Required: No Beliefs That Will Affect Care: None Current Living Situation: Spouse Feels Safe at Home: Yes Assistive Devices: Denture - Lower Allergies Allergies Allergy/AdvReac Type Severity Reaction Status Date / Time codeine Allergy Mild SICK Verified 11/05/22 09:33 hydroxychloroquine Allergy Unknown NIGHT Verified 11/05/22 09:33 SWEATS fluorouracil AdvReac Intermediate HOT FLASHES Verified 11/05/22 09:33 erythromycin base AdvReac Mild GI SYMPTOMS Verified 11/05/22 09:33 meperidine AdvReac Mild GI SYMPTOMS Verified 11/05/22 09:33 esomeprazole AdvReac Unknown HOT FLASHES Verified 11/05/22 09:33 lansoprazole AdvReac Unknown HOT FLASHES Verified 11/05/22 09:33 omeprazole AdvReac Unknown HOT FLASHES Verified 11/05/22 09:33 pantoprazole AdvReac Unknown HOT Verified 11/05/22 09:33 FLASHES AND HYPER Home Meds Home Medications Medication Instructions Recorded Confirmed Domperidone 1 dose PO TID 09/11/18 11/30/22 calcium-vitamin D3-vitamin K 500 1 tab PO DAILY 09/11/18 11/30/22 mg-1,000 unit-40 mcg chewable tablet (Citracal-D3 Soft Chew) cholecalciferol (vitamin D3) 50 2,000 unit PO QAM 09/11/18 11/30/22 mcg (2,000 unit) tablet (Vitamin D3) cyanocobalamin (vitamin B-12) 500 500 mcg PO DAILY 09/11/18 11/30/22 mcg tablet (Vitamin B-12) famotidine 20 mg tablet (Pepcid) 20 mg PO HS 09/11/18 11/30/22 multivitamin 1 tab PO QAM 09/11/18 11/30/22 polyethylene glycol 3350 17 17 g PO DAILY 09/11/18 11/30/22 gram/dose oral powder (Miralax) cranberry 500 mg capsule 500 mg PO BID 07/06/22 11/30/22 ascorbate calcium (vitamin C) 500 500 mg PO DAILY 11/30/22 11/30/22 mg tablet rabeprazole 20 mg tablet,delayed See Rx Instructions .Route .COMPLEX 11/30/22 11/30/22 release (AcipHex) Results & Data (ED) Vital Signs Vital Signs - 24 hr 11/30/22 14:26 11/30/22 19:23 11/30/22 20:11 Temperature 37 C Temperature Source Temporal Artery Scan Pulse Rate 72 Pulse Rate [Finger] 72 79 Respiratory Rate 18 18 18 Respiratory Effort / Characteristics Non-Labored Respiratory Depth Normal Blood Pressure 156/87 H Blood Pressure [Left Arm] 170/77 H 155/70 H Blood Pressure Mean 110 Blood Pressure Mean [Left Arm] 108 98 Blood Pressure Position [Left Arm] Semi-fowlers Pulse Oximetry 99 98 98 Oxygen Delivery Method Room Air Room Air Room Air Sepsis Recent Fever Within 48 Hours No Sepsis New/Unexplained Change in Mental Status No Sepsis Action Taken by Nursing No Action Required Laboratory Data 11/30/22 14:48 11/30/22 14:48 Lab Results 11/30/22 11/30/22 11/30/22 Range/Units 14:48 14:48 16:25 WBC 7.12 (4.8-10.8) K/ul RBC 4.17 L (4.20-5.40) M/uL Hgb 12.8 (12.0-16.0) g/dl Hct 36.6 L (37.0-47.0) % MCV 87.8 (80.0-100.0) fL MCH 30.7 (25.0-34.0) pg MCHC 35.0 (32.0-36.0) g/dL RDW Std Deviation 42.2 (36.4-46.3) fL RDW Coeff of Marifer 13.2 (11.5-14.5) % Plt Count 226 (130-400) K/uL MPV 9.1 L (9.4-12.4) fL Immature Gran % (Auto) 0.3 % Neut % (Auto) 61.3 % Lymph % (Auto) 25.6 % [place] % (Auto) 11.0 % Eos % (Auto) 1.1 % Baso % (Auto) 0.7 % Neut # (Auto) 4.37 (1.40-6.50) K/uL Lymph # (Auto) 1.82 (1.20-3.40) K/uL [place] # (Auto) 0.78 H (0.11-0.59) K/uL Eos # (Auto) 0.08 (0.00-0.50) K/uL Baso # (Auto) 0.05 (0.00-0.20) K/uL Immature Gran # (Auto) 0.02 (0.01-0.20) K/uL Sodium 127 L (136-145) mmol/L Potassium TNP Chloride 96 L (98-107) mmol/L Carbon Dioxide 25 (21-32) mmol/L Anion Gap 6 (3-11) BUN 11 (6-23) mg/dl Creatinine 0.90 (0.6-1.2) mg/dl Est Cr Clr Drug Dosing 41.2 ml/min Est GFR ( Amer) 69.0 ml/min Est GFR (Non-Af Amer) 59.5 ml/min BUN/Creatinine Ratio 12.2 (10-20) Glucose 133 H (70-99(Fasting)) mg/dl Calcium 9.3 (8.6-10.3) mg/dl Total Bilirubin 0.5 (0.2-1.0) mg/dl AST TNP ALT 12 (7-52) U/L Alkaline Phosphatase 37 (34-104) U/L Total Protein 6.7 (6.0-8.3) gm/dl Albumin 4.2 (3.4-5.0) gm/dl Globulin 2.5 (2.5-4.0) gm/dl Albumin/Globulin Ratio 1.7 (0.9-2) Lipase 27 (11-82) U/L Urine Color Yellow Urine Appearance Clear (Clear) Urine pH 7.5 (4.5-7.5) Ur Specific [place] 1.004 (1.000-1.030) Urine Protein Negative (Negative) Urine Glucose (UA) Negative (Negative) Urine Ketones Negative (Negative) Urine Blood Negative (Negative) Urine Nitrite Negative (Negative) Urine Bilirubin Negative (Negative) Urine Urobilinogen Negative (Negative) Ur Leukocyte Esterase Trace H (Negative) Urine WBC (Auto) 1-5 (0-5) /hpf Urine RBC (Auto) 0-4 (0-4) /hpf U Hyaline Cast (Auto) 0 (0-5) /lpf U Epithel Cells (Auto) 10-20 H (0-5) /lpf Urine Bacteria (Auto) Negative (Negative) 11/30/22 Range/Units 18:46 WBC (4.8-10.8) K/ul RBC (4.20-5.40) M/uL Hgb (12.0-16.0) g/dl Hct (37.0-47.0) % MCV (80.0-100.0) fL MCH (25.0-34.0) pg MCHC (32.0-36.0) g/dL RDW Std Deviation (36.4-46.3) fL RDW Coeff of Marifer (11.5-14.5) % Plt Count (130-400) K/uL MPV (9.4-12.4) fL Immature Gran % (Auto) % Neut % (Auto) % Lymph % (Auto) % [place] % (Auto) % Eos % (Auto) % Baso % (Auto) % Neut # (Auto) (1.40-6.50) K/uL Lymph # (Auto) (1.20-3.40) K/uL [place] # (Auto) (0.11-0.59) K/uL Eos # (Auto) (0.00-0.50) K/uL Baso # (Auto) (0.00-0.20) K/uL Immature Gran # (Auto) (0.01-0.20) K/uL Sodium (136-145) mmol/L Potassium 3.8 Chloride (98-107) mmol/L Carbon Dioxide (21-32) mmol/L Anion Gap (3-11) BUN (6-23) mg/dl Creatinine (0.6-1.2) mg/dl Est Cr Clr Drug Dosing ml/min Est GFR ( Amer) ml/min Est GFR (Non-Af Amer) ml/min BUN/Creatinine Ratio (10-20) Glucose (70-99(Fasting)) mg/dl Calcium (8.6-10.3) mg/dl Total Bilirubin (0.2-1.0) mg/dl AST 17 ALT (7-52) U/L Alkaline Phosphatase (34-104) U/L Total Protein (6.0-8.3) gm/dl Albumin (3.4-5.0) gm/dl Globulin (2.5-4.0) gm/dl Albumin/Globulin Ratio (0.9-2) Lipase (11-82) U/L Urine Color Urine Appearance (Clear) Urine pH (4.5-7.5) Ur Specific [place] (1.000-1.030) Urine Protein (Negative) Urine Glucose (UA) (Negative) Urine Ketones (Negative) Urine Blood (Negative) Urine Nitrite (Negative) Urine Bilirubin (Negative) Urine Urobilinogen (Negative) Ur Leukocyte Esterase (Negative) Urine WBC (Auto) (0-5) /hpf Urine RBC (Auto) (0-4) /hpf U Hyaline Cast (Auto) (0-5) /lpf U Epithel Cells (Auto) (0-5) /lpf Urine Bacteria (Auto) (Negative) Administered Medications Discontinued Medications Bisacodyl (Bisacodyl 10 Mg Supp) 10 mg OR NOW STA Stop: 11/30/22 21:08 Last Admin: 11/30/22 21:47 Dose: 10 mg Documented By: Sodium Chloride (Nss 1000ml) 1,000 mls @ 999 mls/hr IV .Q1H1M ONE Stop: 11/30/22 19:30 Last Infusion: 11/30/22 20:05 Dose: 0 mls/hr Documented By: Admin: 11/30/22 18:32 Dose: 999 mls/hr Documented By: Ioversol (Optiray 320 100ml) 92 ml IV ONCE ONE Stop: 11/30/22 19:53 Last Admin: 11/30/22 19:52 Dose: 92 ml Documented By: YUSUF Polyethylene Glycol (Polyethylene (Miralax) 17 Gm Pack) 17 gm PO NOW STA Stop: 11/30/22 21:08 Last Admin: 11/30/22 21:47 Dose: 17 gm Documented By: Imaging Data Radiologist's Impression: Abdomen/Pelvis CT 11/30/22 18:30 Exam(s): CT ABDOMEN + PELVIS With Contrast IV Amt: 92 ml optiray 320 EXAM: CT Abdomen and Pelvis With Intravenous Contrast CLINICAL HISTORY: Reason for exam: abd pain. TECHNIQUE: Axial computed tomography images of the abdomen and pelvis with intravenous contrast. CTDI is 10.32 mGy and DLP is 433.73 mGy-cm. Automated exposure control was utilized for the study. A dose lowering technique was utilized adhering to the principles of ALARA. CONTRAST: Patient received 92 ml optiray 320 of IV contrast COMPARISON: 01/14/22 FINDINGS: Lung bases: Clear lung bases. ABDOMEN: Liver: Benign inferior left hepatic lobe cyst. Liver otherwise unremarkable. Gallbladder and bile ducts: Unremarkable. No calcified gallstones. No evidence of cholecystitis or biliary dilatation. Pancreas: Unremarkable. No mass. No ductal dilation. Spleen: Unremarkable. No splenomegaly. Adrenals: Unremarkable. No mass. Kidneys and ureters: Symmetric renal enhancement. No hydronephrosis. Exophytic right kidney lower pole cyst measuring 7.7 cm; no further follow-up required. Stomach and bowel: Unremarkable. No mucosal thickening. No bowel obstruction. PELVIS: Appendix: Normal appendix. Bladder: Unremarkable. Normal urinary bladder. Reproductive: Hysterectomy. ABDOMEN and PELVIS: Intraperitoneal space: Unremarkable. No free air. No significant fluid collection. Bones/joints: No acute fracture or dislocation. Soft tissues: Unremarkable. Vasculature: Atherosclerosis. No aortic aneurysm. Lymph nodes: Unremarkable. No enlarged lymph nodes. IMPRESSION: 1. Moderate colonic stool. 2. No acute findings. Electronically signed by: Tiffanie Flores M.D. 11/30/22 20:12 PM Discharge Plan Visit Data Chief Complaint: GI Assessment Stated Complaint: DIARRHEA,NOW NOT ABLE TO HAVE BOWEL MOVEMENT ED Provider: Sandeep Aguillon Discharge Problem: Diarrhea, Acute hyponatremia Patient Disposition: Admitted As Inpatient Discharge Instructions Interventions: ED Discharge Assessment Last Done: 11/30/22 21:44
[2022-11-30 19:22] LABS: Potassium 3.8 mmol/L (3.5-5.1)
[2022-11-30] MEDS ORDERED: OPTIRAY 320 100ml IV ONE (19:52)
--- NOTE | 2022-11-30 20:14 | CT Scan Report ---
Exam(s): CT ABDOMEN + PELVIS With Contrast IV Amt: 92 ml optiray 320 EXAM: CT Abdomen and Pelvis With Intravenous Contrast CLINICAL HISTORY: Reason for exam: abd pain. TECHNIQUE: Axial computed tomography images of the abdomen and pelvis with intravenous contrast. CTDI is 10.32 mGy and DLP is 433.73 mGy-cm. Automated exposure control was utilized for the study. A dose lowering technique was utilized adhering to the principles of ALARA. CONTRAST: Patient received 92 ml optiray 320 of IV contrast COMPARISON: 01/14/22 FINDINGS: Lung bases: Clear lung bases. ABDOMEN: Liver: Benign inferior left hepatic lobe cyst. Liver otherwise unremarkable. Gallbladder and bile ducts: Unremarkable. No calcified gallstones. No evidence of cholecystitis or biliary dilatation. Pancreas: Unremarkable. No mass. No ductal dilation. Spleen: Unremarkable. No splenomegaly. Adrenals: Unremarkable. No mass. Kidneys and ureters: Symmetric renal enhancement. No hydronephrosis. Exophytic right kidney lower pole cyst measuring 7.7 cm; no further follow-up required. Stomach and bowel: Unremarkable. No mucosal thickening. No bowel obstruction. PELVIS: Appendix: Normal appendix. Bladder: Unremarkable. Normal urinary bladder. Reproductive: Hysterectomy. ABDOMEN and PELVIS: Intraperitoneal space: Unremarkable. No free air. No significant fluid collection. Bones/joints: No acute fracture or dislocation. Soft tissues: Unremarkable. Vasculature: Atherosclerosis. No aortic aneurysm. Lymph nodes: Unremarkable. No enlarged lymph nodes. IMPRESSION: 1. Moderate colonic stool. 2. No acute findings. Electronically signed by: Tiffanie Flores M.D. 11/30/22 20:12 PM
--- NOTE | 2022-11-30 20:38 | History & Physical Report ---
Date of Service November 30, 2022 Assessment & Plan (1) Hyponatremia: Plan: -Admit to med/surge -Currently stable and asymptomatic -Patient's sodium noted to be 127 today, likely a combination of primary polydipsia and decreased oral intake -Patient has been drinking excessive water at home due to concerns of becoming dehydrated -S/P 1L NSS in the ED, will hold additional IV fluids for now -Will obtain STAT repeat BMP and will add on mag, serum osmolality, urine osmolality, and urine sodium -No free water, patient can have liquids with electrolytes, comment placed in diet -Monitor am sodium level -BL SCD's for DVT PPX -HH diet -AM CBC, CMP, Mag (2) Constipation: Plan: -Patient noted to have chronic constipation -Her diarrhea was likely overflow diarrhea from chronic constipation -Noted to have moderate colonic stool burden on CT today -Will give a Dulcolax suppository tonight and dose of miralax, continue with BID miralax and daily suppositories tomorrow -Monitor for consistent bowel movements (3) CREST variant of scleroderma: Plan: -Daily pantoprazole (4) Gastroparesis: Plan: -Continue bowel regimen Plan The patient was discussed with Dr. Souza at the time of the admission History of Present Illness Chief Complaint: Diarrhea, abdominal pain Primary Care Provider: DO Mercedes Bucio is an 82 year old female with a PMH significant for CREST syndrome, chronic constipation, gastroparesis, and GERD who presented to the [facility] ED on 11/30 with complaints of 2.5 weeks of diarrhea and abdominal pain. In the ED, vitals were stable. Labs were significant for a sodium of 127. CT of the abdomen/pelvis w/IV con was read as "1. Moderate colonic stool. 2. No acute findings.". Prior to admission the patient was given 1L NSS. At the time of the exam the patient was sitting in bed in no acute distress. She explains that she has chronic bowel issues due to her gastroparesis and scleroderma. Over the past few weeks she had been feeling as though she was constipated and saw gastroenterology on 11/05. They ordered her a miraLax bowel cleanse, she had multiple episodes of diarrhea after. A KUB was ordered for follow up on 11/17 and was read as "1. Nonobstructive bowel gas pattern. 2. Moderate fecal retention of the left hemicolon.". She was seen at her PCP's office shortly after and was prescribed a different medication that she cannot remember the name to. Her pharmacy did not have the medication on formulary and was given an over the counter medication by the pharmacist, but she does not remember the name. This again cause her to have some diarrhea but no formed stool. She had moderate, dull lower abdominal pain earlier today and again this afternoon, prompting her to come to the ED. She has had 2, well-formed but small bowel movements today. When asked, she states that she has been drinking approximately 4, 16 OZ bottles of water and 2 bottles of Propel over the past 2 weeks to stay hydrated. She denies current fever, chills, headache, changes in vision, hearing, taste, and smell, chest pain, SOB, nausea, vomiting, dysuria, hematuria, melena, LE swelling, and recent trauma. She wishes to be a full code. Please refer to Dr. Souza's attestation for any changes to the treatment plan Allergies Allergy/AdvReac Type Severity Reaction Status Date / Time codeine Allergy Mild SICK Verified 11/05/22 09:33 hydroxychloroquine Allergy Unknown NIGHT Verified 11/05/22 09:33 SWEATS fluorouracil AdvReac Intermediate HOT FLASHES Verified 11/05/22 09:33 erythromycin base AdvReac Mild GI SYMPTOMS Verified 11/05/22 09:33 meperidine AdvReac Mild GI SYMPTOMS Verified 11/05/22 09:33 esomeprazole AdvReac Unknown HOT FLASHES Verified 11/05/22 09:33 lansoprazole AdvReac Unknown HOT FLASHES Verified 11/05/22 09:33 omeprazole AdvReac Unknown HOT FLASHES Verified 11/05/22 09:33 pantoprazole AdvReac Unknown HOT Verified 11/05/22 09:33 FLASHES AND HYPER Home Medications Medication Instructions Recorded Confirmed Type Domperidone 1 dose PO TID 09/11/18 11/30/22 History calcium-vitamin D3-vitamin K 500 1 tab PO DAILY 09/11/18 11/30/22 History mg-1,000 unit-40 mcg chewable tablet (Citracal-D3 Soft Chew) cholecalciferol (vitamin D3) 50 2,000 unit PO QAM 09/11/18 11/30/22 History mcg (2,000 unit) tablet (Vitamin D3) cyanocobalamin (vitamin B-12) 500 500 mcg PO DAILY 09/11/18 11/30/22 History mcg tablet (Vitamin B-12) famotidine 20 mg tablet (Pepcid) 20 mg PO HS 09/11/18 11/30/22 History multivitamin 1 tab PO QAM 09/11/18 11/30/22 History polyethylene glycol 3350 17 17 g PO DAILY 09/11/18 11/30/22 History gram/dose oral powder (Miralax) cranberry 500 mg capsule 500 mg PO BID 07/06/22 11/30/22 History ascorbate calcium (vitamin C) 500 500 mg PO DAILY 11/30/22 11/30/22 History mg tablet rabeprazole 20 mg tablet,delayed See Rx Instructions .Route .COMPLEX 11/30/22 11/30/22 History release (AcipHex) Past Med/Surg History Medical History Acute bronchitis Calcinosis cutis Esophageal dyskinesia Esophageal ulcer Fracture of finger, closed Gastritis History of basal cell cancer History of esophageal ulcer History of migraine headaches History of squamous cell carcinoma Internal hemorrhoids Nausea and vomiting after administration of anesthetic agent Surgical History H/O vaginal hysterectomy History of cataract surgery History of colonoscopy History of esophagogastroduodenoscopy (EGD) History of hand surgery History of Mohs micrographic surgery for skin cancer History of tubal ligation History of wisdom tooth extraction Family History Sister Ulcerative colitis Denies family history of Crohn's disease Colorectal cancer Social History Smoking Status: Never smoker Second Hand Exposure: No; Do You Dip or Chew Tobacco: No; Hx Alcohol Use: No Hx Substance Use: No Preferred Language: Vietnamese Communication Ability: Effective Marketing Professional Required: No Beliefs That Will Affect Care: None Current Living Situation: Spouse Other Information That Helps Us Care for You: No Feels Safe at Home: Yes Safety Concerns: Feels Safe At This Time Assistive Devices: None Physical Exam Physical Exam: Physical Exam: General: In no acute distress, stated age, well-nourished, good hygiene HEENT: Normocephalic, atraumatic, no scleral icterus, pupils around round, symmetrical, and reactive to light, moist mucus membranes, trachea midline, no thyromegaly Chest/Pulm: No respiratory distress, symmetrical chest expansion, clear breath sounds throughout Cardiac: RRR, no murmurs noted Abdomen: Negative for ascites and bruising, hypoactive bowel sounds, soft, non-tender to palpation throughout Musculoskeletal: Symmetrical and without signs of acute trauma, upper and lower extremities with full ROM, no atrophy, spasticity, or flaccidity Extremities: Radial, dorsalis pedis, and posterior tibial pulses are intact and symmetrical, no edema noted in the BL LE's Skin: Warm, dry, no rashes , lesions, or scars noted Neuro: Alert and oriented to person, place, month, year, and president, no focal defects, no tremors noted Psych: No acute distress, calm and cooperative during the exam Results & Data Results & Data Vital Signs (Past 12 Hours) Vital Signs Temp Pulse Pulse Resp BP BP Pulse Ox 11/30/22 20:11 79 18 155/70 H 98 11/30/22 19:23 72 18 170/77 H 98 11/30/22 14:26 37 C 72 18 156/87 H 99 O2 Del Method 11/30/22 20:11 Room Air 11/30/22 19:23 Room Air 11/30/22 14:26 Room Air Laboratory Results Abnormal lab results 11/30/22 11/30/22 11/30/22 Range/Units 14:48 14:48 16:25 RBC 4.17 L (4.20-5.40) M/uL Hct 36.6 L (37.0-47.0) % MPV 9.1 L (9.4-12.4) fL [place] # (Auto) 0.78 H (0.11-0.59) K/uL Sodium 127 L (136-145) mmol/L Chloride 96 L (98-107) mmol/L Glucose 133 H (70-99(Fasting)) mg/dl Ur Leukocyte Esterase Trace H (Negative) U Epithel Cells (Auto) 10-20 H (0-5) /lpf Diagnostic Findings Abdomen/Pelvis CT 11/30/22 18:30 Exam(s): CT ABDOMEN + PELVIS With Contrast IV Amt: 92 ml optiray 320 EXAM: CT Abdomen and Pelvis With Intravenous Contrast CLINICAL HISTORY: Reason for exam: abd pain. TECHNIQUE: Axial computed tomography images of the abdomen and pelvis with intravenous contrast. CTDI is 10.32 mGy and DLP is 433.73 mGy-cm. Automated exposure control was utilized for the study. A dose lowering technique was utilized adhering to the principles of ALARA. CONTRAST: Patient received 92 ml optiray 320 of IV contrast COMPARISON: 01/14/22 FINDINGS: Lung bases: Clear lung bases. ABDOMEN: Liver: Benign inferior left hepatic lobe cyst. Liver otherwise unremarkable. Gallbladder and bile ducts: Unremarkable. No calcified gallstones. No evidence of cholecystitis or biliary dilatation. Pancreas: Unremarkable. No mass. No ductal dilation. Spleen: Unremarkable. No splenomegaly. Adrenals: Unremarkable. No mass. Kidneys and ureters: Symmetric renal enhancement. No hydronephrosis. Exophytic right kidney lower pole cyst measuring 7.7 cm; no further follow-up required. Stomach and bowel: Unremarkable. No mucosal thickening. No bowel obstruction. PELVIS: Appendix: Normal appendix. Bladder: Unremarkable. Normal urinary bladder. Reproductive: Hysterectomy. ABDOMEN and PELVIS: Intraperitoneal space: Unremarkable. No free air. No significant fluid collection. Bones/joints: No acute fracture or dislocation. Soft tissues: Unremarkable. Vasculature: Atherosclerosis. No aortic aneurysm. Lymph nodes: Unremarkable. No enlarged lymph nodes. IMPRESSION: 1. Moderate colonic stool. 2. No acute findings. Electronically signed by: Tiffanie Flores M.D. 11/30/22 20:12 PM Code Status & VTE Plan Code Status Full code VTE Prophylaxis Plan VTE Prophylaxis will be ordered: Yes Supervising Physician Co-Signing Physician Notes Patient seen and examined, chart reviewed, case discussed with JOSUE Faustin and I agree with the assessment and plan as above. In brief, patient is an 82yo female with history of CREST syndrome, gastroparesis and GERD with 2.5 weeks of diarrhea and abdominal pain. She reports multiple episodes of non-bloody diarrhea - is slightly improving. She has poor appetite with decreased oral intake but reports she is drinking a lot of water Qq=[id number]. Afebrile, HD stable, NAD MM slightly dry, neck supple +S1/S2, regular, no m/r/g Lungs - CTA, no rales/rhonchi/wheezes Abd - +BS, soft, NT/ND Ext - warm, well perfused Labs and images reviewed Assessment/Plan- hyponatremia - likely secondary to poor oral intake, increased intake of free water. Urine and serum osmolality ordered. Received 1L in ER Repeat [id number] Continue to monitor sodium level Remainder as above PG Care Time/CCT Total # of Minutes Spent Total Time Spent with Patient: Total time spent is greater than 50% in coordination of care (as documented) at patient's floor/unit and/or counseling patient: Coding [place] [address] INT INP/OBS CARE 2/55MIN Patient Type Established Medical Decision Making Moderate Complexity Diagnoses Hyponatremia E87.1 Constipation K59.00 CREST variant of scleroderma M34.1 Gastroparesis K31.84
[2022-11-30] MEDS ORDERED: POLYETHYLENE (MIRALAX) 17 GM PACK PO STA (21:07)
[2022-11-30] MEDS ORDERED: bisacodyL 10 MG SUPP PR STA (21:07)
[2022-11-30] MEDS ORDERED: FAMOTIDINE 20 MG TAB PO SCH (22:35)
[2022-11-30 23:47] LABS: BUN Creatinine Ratio 10.7 (10-20); Calcium 9.3 mg/dl (8.6-10.3); Creatinine Clr Calc Pharmacy 44.1 ml/min; Est GFR (Non-African American) 64.7 ml/min; Potassium 3.8 mmol/L (3.5-5.1)
[2022-12-01 00:58] LABS: Adenovirus F 40/41 PCR Not Detected (NotDetected); Astrovirus PCR Not Detected (NotDetected); Campylobacter PCR Not Detected (NotDetected); Cryptosporidium PCR Not Detected (NotDetected); Cyclospora cayetanensis PCR Not Detected (NotDetected); Entamoeba histolytica PCR Not Detected (NotDetected); Enteroaggregative E.coli(EAEC) Not Detected (NotDetected); Enteropathogenic E.coli (EPEC) Not Detected (NotDetected); Enterotoxigenic E.coli (ETEC) Not Detected (NotDetected); Giardia lamblia PCR Not Detected (NotDetected); Norovirus GI/GII PCR Not Detected (NotDetected); Plesiomonas shigelloides PCR Not Detected (NotDetected); Rotavirus A PCR Not Detected (NotDetected); Salmonella PCR Not Detected (NotDetected); Sapovirus PCR Not Detected (NotDetected); Shiga-like Toxin E.coli (STEC) Not Detected (NotDetected); Shigella/Enteroinvasive E.coli Not Detected (NotDetected); Vibrio cholerae PCR Not Detected (NotDetected); Vibrio species PCR Not Detected (NotDetected); Yersinia enterocolitica PCR Not Detected (NotDetected)
[2022-12-01] MEDS: PANTOprazole 40 MG TAB PO SCH ×2 (08:15→09:15)
[2022-12-01 08:35] LABS: Basophils # (auto) 0.06 K/uL (0.00-0.20); Basophils % (auto) 0.9 %; Eosinophils % (auto) 1.5 %; Hematocrit (blood only) 40.3 % (37.0-47.0); Hemoglobin 13.7 g/dl (12.0-16.0); Immature Granulocytes # (auto) 0.01 K/uL (0.01-0.20); Immature Granulocytes % (auto) 0.2 %; Lymphocytes # (auto) 1.56 K/uL (1.20-3.40); Lymphocytes % (auto) 24.1 %; Mean Corpuscular Hemoglobin 30.5 pg (25.0-34.0); Mean Corpuscular Volume 89.8 fL (80.0-100.0); Mean Platelet Volume 8.8 fL (9.4-12.4); Monocytes # (auto) 0.68 K/uL (0.11-0.59); Monocytes % (auto) 10.5 %; Neutrophils # (auto) 4.05 K/uL (1.40-6.50); Neutrophils % (auto) 62.8 %; Platelet Count 230 K/uL (130-400); RDW Coefficient of Variation 12.9 % (11.5-14.5); RDW Standard Deviation 42.1 fL (36.4-46.3); Red Blood Count 4.49 M/uL (4.20-5.40); White Blood Count 6.46 K/ul (4.8-10.8)
--- NOTE | 2022-12-01 08:37 | Hospitalist Progress Note ---
Date of Service December 01, 2022 Assessment & Plan (1) Hyponatremia: Plan: -Admit to med/surge -Currently stable and asymptomatic -Patient's sodium noted to be 127 today, likely a combination of primary polydipsia and decreased oral intake -Patient has been drinking excessive water at home due to concerns of becoming dehydrated -S/P 1L NSS in the ED, will hold additional IV fluids for now -Will obtain STAT repeat BMP and will add on mag, serum osmolality, urine osmolality, and urine sodium -No free water, patient can have liquids with electrolytes, comment placed in diet -Monitor am sodium level -BL SCD's for DVT PPX -HH diet -AM CBC, CMP, Mag (2) Constipation: Plan: -Patient noted to have chronic constipation -Her diarrhea was likely overflow diarrhea from chronic constipation -Noted to have moderate colonic stool burden on CT today -Will give a Dulcolax suppository tonight and dose of miralax, continue with BID miralax and daily suppositories tomorrow -Monitor for consistent bowel movements (3) CREST variant of scleroderma: Plan: -Daily pantoprazole (4) Gastroparesis: Plan: -Continue bowel regimen Plan The patient was discussed with Dr. Souza at the time of the admission Admission and Anticipated Discharge Date Admission Date: November 30, 2022 Results & Data Results & Data Vital Signs (Past 12 Hours) Vital Signs Temp Pulse Resp BP Pulse Ox O2 Del Method 11/30/22 22:35 36.6 C 75 18 145/74 H 98 Room Air 11/30/22 22:25 36.6 C 75 18 145/74 H 98 Room Air 11/30/22 21:44 Room Air Laboratory Results 12/01/22 12/01/22 12/01/22 Range/Units 08:08 08:08 02:46 WBC 6.46 (4.8-10.8) K/ul RBC 4.49 (4.20-5.40) M/uL Hgb 13.7 (12.0-16.0) g/dl Hct 40.3 (37.0-47.0) % MCV 89.8 (80.0-100.0) fL MCH 30.5 (25.0-34.0) pg MCHC 34.0 (32.0-36.0) g/dL RDW Std Deviation 42.1 (36.4-46.3) fL RDW Coeff of Marifer 12.9 (11.5-14.5) % Plt Count 230 (130-400) K/uL MPV 8.8 L (9.4-12.4) fL Immature Gran % (Auto) 0.2 % Neut % (Auto) 62.8 % Lymph % (Auto) 24.1 % [place] % (Auto) 10.5 % Eos % (Auto) 1.5 % Baso % (Auto) 0.9 % Neut # (Auto) 4.05 (1.40-6.50) K/uL Lymph # (Auto) 1.56 (1.20-3.40) K/uL [place] # (Auto) 0.68 H (0.11-0.59) K/uL Eos # (Auto) 0.10 (0.00-0.50) K/uL Baso # (Auto) 0.06 (0.00-0.20) K/uL Immature Gran # (Auto) 0.01 (0.01-0.20) K/uL Sodium Pending (136-145) mmol/L Potassium Pending Chloride Pending (98-107) mmol/L Carbon Dioxide Pending (21-32) mmol/L Anion Gap Pending (3-11) BUN Pending (6-23) mg/dl Creatinine Pending (0.6-1.2) mg/dl Est Cr Clr Drug Dosing Pending ml/min Est GFR ( Amer) Pending ml/min Est GFR (Non-Af Amer) Pending ml/min BUN/Creatinine Ratio Pending (10-20) Glucose Pending (70-99(Fasting)) mg/dl Osmolality (280-300) mOsm/kg Calcium Pending (8.6-10.3) mg/dl Magnesium Pending (1.7-2.4) mg/dl Total Bilirubin Pending (0.2-1.0) mg/dl AST Pending ALT Pending (7-52) U/L Alkaline Phosphatase Pending (34-104) U/L Total Protein Pending (6.0-8.3) gm/dl Albumin Pending (3.4-5.0) gm/dl Globulin Pending (2.5-4.0) gm/dl Albumin/Globulin Ratio Pending (0.9-2) Lipase (11-82) U/L Urine Color Urine Appearance (Clear) Urine pH (4.5-7.5) Ur Specific [place] (1.000-1.030) Urine Protein (Negative) Urine Glucose (UA) (Negative) Urine Ketones (Negative) Urine Blood (Negative) Urine Nitrite (Negative) Urine Bilirubin (Negative) Urine Urobilinogen (Negative) Ur Leukocyte Esterase (Negative) Urine WBC (Auto) (0-5) /hpf Urine RBC (Auto) (0-4) /hpf U Hyaline Cast (Auto) (0-5) /lpf U Epithel Cells (Auto) (0-5) /lpf Urine Bacteria (Auto) (Negative) Urine Osmolality (500-800) mOsm/kg Ur Random Sodium 135 mmol/L Stl C. cayetanensis PCR (NotDetected) Stool Rotavirus A PCR (NotDetected) Stl Adenov F 40/41 PCR (NotDetected) Stool Astrovirus (PCR) (NotDetected) Stool Campylobacter PCR (NotDetected) Stool Cryptosporidium PCR (NotDetected) Stl E.coli Shiga Tox PCR (NotDetected) Stl Enterotoxigenic E PCR (NotDetected) Stool EPEC (PCR) (NotDetected) Stool EAEC (PCR) (NotDetected) Stl E. histolytica PCR (NotDetected) Stool Giardia Lamblia PCR (NotDetected) Stool Salmonella PCR (NotDetected) Stool Sapovirus (PCR) (NotDetected) Stl P. shigelloides PCR (NotDetected) Stl Shigella/EIEC PCR (NotDetected) St Y.enterocolitica PCR (NotDetected) Stool Vibrio (PCR) (NotDetected) Stl Vibrio cholerae PCR (NotDetected) Stl Norovirus GI/GII PCR (NotDetected) 12/01/22 11/30/22 11/30/22 Range/Units 02:46 23:17 23:17 WBC (4.8-10.8) K/ul RBC (4.20-5.40) M/uL Hgb (12.0-16.0) g/dl Hct (37.0-47.0) % MCV (80.0-100.0) fL MCH (25.0-34.0) pg MCHC (32.0-36.0) g/dL RDW Std Deviation (36.4-46.3) fL RDW Coeff of Marifer (11.5-14.5) % Plt Count (130-400) K/uL MPV (9.4-12.4) fL Immature Gran % (Auto) % Neut % (Auto) % Lymph % (Auto) % [place] % (Auto) % Eos % (Auto) % Baso % (Auto) % Neut # (Auto) (1.40-6.50) K/uL Lymph # (Auto) (1.20-3.40) K/uL [place] # (Auto) (0.11-0.59) K/uL Eos # (Auto) (0.00-0.50) K/uL Baso # (Auto) (0.00-0.20) K/uL Immature Gran # (Auto) (0.01-0.20) K/uL Sodium 135 L (136-145) mmol/L Potassium 3.8 Chloride 102 (98-107) mmol/L Carbon Dioxide 26 (21-32) mmol/L Anion Gap 7 (3-11) BUN 9 (6-23) mg/dl Creatinine 0.84 (0.6-1.2) mg/dl Est Cr Clr Drug Dosing 44.1 ml/min Est GFR ( Amer) 75.0 ml/min Est GFR (Non-Af Amer) 64.7 ml/min BUN/Creatinine Ratio 10.7 (10-20) Glucose 104 H (70-99(Fasting)) mg/dl Osmolality 287 (280-300) mOsm/kg Calcium 9.3 (8.6-10.3) mg/dl Magnesium 2.0 (1.7-2.4) mg/dl Total Bilirubin (0.2-1.0) mg/dl AST ALT (7-52) U/L Alkaline Phosphatase (34-104) U/L Total Protein (6.0-8.3) gm/dl Albumin (3.4-5.0) gm/dl Globulin (2.5-4.0) gm/dl Albumin/Globulin Ratio (0.9-2) Lipase (11-82) U/L Urine Color Urine Appearance (Clear) Urine pH (4.5-7.5) Ur Specific [place] (1.000-1.030) Urine Protein (Negative) Urine Glucose (UA) (Negative) Urine Ketones (Negative) Urine Blood (Negative) Urine Nitrite (Negative) Urine Bilirubin (Negative) Urine Urobilinogen (Negative) Ur Leukocyte Esterase (Negative) Urine WBC (Auto) (0-5) /hpf Urine RBC (Auto) (0-4) /hpf U Hyaline Cast (Auto) (0-5) /lpf U Epithel Cells (Auto) (0-5) /lpf Urine Bacteria (Auto) (Negative) Urine Osmolality 449 L (500-800) mOsm/kg Ur Random Sodium mmol/L Stl C. cayetanensis PCR (NotDetected) Stool Rotavirus A PCR (NotDetected) Stl Adenov F 40/41 PCR (NotDetected) Stool Astrovirus (PCR) (NotDetected) Stool Campylobacter PCR (NotDetected) Stool Cryptosporidium PCR (NotDetected) Stl E.coli Shiga Tox PCR (NotDetected) Stl Enterotoxigenic E PCR (NotDetected) Stool EPEC (PCR) (NotDetected) Stool EAEC (PCR) (NotDetected) Stl E. histolytica PCR (NotDetected) Stool Giardia Lamblia PCR (NotDetected) Stool Salmonella PCR (NotDetected) Stool Sapovirus (PCR) (NotDetected) Stl P. shigelloides PCR (NotDetected) Stl Shigella/EIEC PCR (NotDetected) St Y.enterocolitica PCR (NotDetected) Stool Vibrio (PCR) (NotDetected) Stl Vibrio cholerae PCR (NotDetected) Stl Norovirus GI/GII PCR (NotDetected) 11/30/22 11/30/22 11/30/22 Range/Units 23:05 18:46 16:25 WBC (4.8-10.8) K/ul RBC (4.20-5.40) M/uL Hgb (12.0-16.0) g/dl Hct (37.0-47.0) % MCV (80.0-100.0) fL MCH (25.0-34.0) pg MCHC (32.0-36.0) g/dL RDW Std Deviation (36.4-46.3) fL RDW Coeff of Marifer (11.5-14.5) % Plt Count (130-400) K/uL MPV (9.4-12.4) fL Immature Gran % (Auto) % Neut % (Auto) % Lymph % (Auto) % [place] % (Auto) % Eos % (Auto) % Baso % (Auto) % Neut # (Auto) (1.40-6.50) K/uL Lymph # (Auto) (1.20-3.40) K/uL [place] # (Auto) (0.11-0.59) K/uL Eos # (Auto) (0.00-0.50) K/uL Baso # (Auto) (0.00-0.20) K/uL Immature Gran # (Auto) (0.01-0.20) K/uL Sodium (136-145) mmol/L Potassium 3.8 Chloride (98-107) mmol/L Carbon Dioxide (21-32) mmol/L Anion Gap (3-11) BUN (6-23) mg/dl Creatinine (0.6-1.2) mg/dl Est Cr Clr Drug Dosing ml/min Est GFR ( Amer) ml/min Est GFR (Non-Af Amer) ml/min BUN/Creatinine Ratio (10-20) Glucose (70-99(Fasting)) mg/dl Osmolality (280-300) mOsm/kg Calcium (8.6-10.3) mg/dl Magnesium (1.7-2.4) mg/dl Total Bilirubin (0.2-1.0) mg/dl AST 17 ALT (7-52) U/L Alkaline Phosphatase (34-104) U/L Total Protein (6.0-8.3) gm/dl Albumin (3.4-5.0) gm/dl Globulin (2.5-4.0) gm/dl Albumin/Globulin Ratio (0.9-2) Lipase (11-82) U/L Urine Color Yellow Urine Appearance Clear (Clear) Urine pH 7.5 (4.5-7.5) Ur Specific [place] 1.004 (1.000-1.030) Urine Protein Negative (Negative) Urine Glucose (UA) Negative (Negative) Urine Ketones Negative (Negative) Urine Blood Negative (Negative) Urine Nitrite Negative (Negative) Urine Bilirubin Negative (Negative) Urine Urobilinogen Negative (Negative) Ur Leukocyte Esterase Trace H (Negative) Urine WBC (Auto) 1-5 (0-5) /hpf Urine RBC (Auto) 0-4 (0-4) /hpf U Hyaline Cast (Auto) 0 (0-5) /lpf U Epithel Cells (Auto) 10-20 H (0-5) /lpf Urine Bacteria (Auto) Negative (Negative) Urine Osmolality (500-800) mOsm/kg Ur Random Sodium mmol/L Stl C. cayetanensis PCR Not Detected (NotDetected) Stool Rotavirus A PCR Not Detected (NotDetected) Stl Adenov F 40/41 PCR Not Detected (NotDetected) Stool Astrovirus (PCR) Not Detected (NotDetected) Stool Campylobacter PCR Not Detected (NotDetected) Stool Cryptosporidium PCR Not Detected (NotDetected) Stl E.coli Shiga Tox PCR Not Detected (NotDetected) Stl Enterotoxigenic E PCR Not Detected (NotDetected) Stool EPEC (PCR) Not Detected (NotDetected) Stool EAEC (PCR) Not Detected (NotDetected) Stl E. histolytica PCR Not Detected (NotDetected) Stool Giardia Lamblia PCR Not Detected (NotDetected) Stool Salmonella PCR Not Detected (NotDetected) Stool Sapovirus (PCR) Not Detected (NotDetected) Stl P. shigelloides PCR Not Detected (NotDetected) Stl Shigella/EIEC PCR Not Detected (NotDetected) St Y.enterocolitica PCR Not Detected (NotDetected) Stool Vibrio (PCR) Not Detected (NotDetected) Stl Vibrio cholerae PCR Not Detected (NotDetected) Stl Norovirus GI/GII PCR Not Detected (NotDetected) 11/30/22 11/30/22 Range/Units 14:48 14:48 WBC 7.12 (4.8-10.8) K/ul RBC 4.17 L (4.20-5.40) M/uL Hgb 12.8 (12.0-16.0) g/dl Hct 36.6 L (37.0-47.0) % MCV 87.8 (80.0-100.0) fL MCH 30.7 (25.0-34.0) pg MCHC 35.0 (32.0-36.0) g/dL RDW Std Deviation 42.2 (36.4-46.3) fL RDW Coeff of Marifer 13.2 (11.5-14.5) % Plt Count 226 (130-400) K/uL MPV 9.1 L (9.4-12.4) fL Immature Gran % (Auto) 0.3 % Neut % (Auto) 61.3 % Lymph % (Auto) 25.6 % [place] % (Auto) 11.0 % Eos % (Auto) 1.1 % Baso % (Auto) 0.7 % Neut # (Auto) 4.37 (1.40-6.50) K/uL Lymph # (Auto) 1.82 (1.20-3.40) K/uL [place] # (Auto) 0.78 H (0.11-0.59) K/uL Eos # (Auto) 0.08 (0.00-0.50) K/uL Baso # (Auto) 0.05 (0.00-0.20) K/uL Immature Gran # (Auto) 0.02 (0.01-0.20) K/uL Sodium 127 L (136-145) mmol/L Potassium TNP Chloride 96 L (98-107) mmol/L Carbon Dioxide 25 (21-32) mmol/L Anion Gap 6 (3-11) BUN 11 (6-23) mg/dl Creatinine 0.90 (0.6-1.2) mg/dl Est Cr Clr Drug Dosing 41.2 ml/min Est GFR ( Amer) 69.0 ml/min Est GFR (Non-Af Amer) 59.5 ml/min BUN/Creatinine Ratio 12.2 (10-20) Glucose 133 H (70-99(Fasting)) mg/dl Osmolality (280-300) mOsm/kg Calcium 9.3 (8.6-10.3) mg/dl Magnesium (1.7-2.4) mg/dl Total Bilirubin 0.5 (0.2-1.0) mg/dl AST TNP ALT 12 (7-52) U/L Alkaline Phosphatase 37 (34-104) U/L Total Protein 6.7 (6.0-8.3) gm/dl Albumin 4.2 (3.4-5.0) gm/dl Globulin 2.5 (2.5-4.0) gm/dl Albumin/Globulin Ratio 1.7 (0.9-2) Lipase 27 (11-82) U/L Urine Color Urine Appearance (Clear) Urine pH (4.5-7.5) Ur Specific [place] (1.000-1.030) Urine Protein (Negative) Urine Glucose (UA) (Negative) Urine Ketones (Negative) Urine Blood (Negative) Urine Nitrite (Negative) Urine Bilirubin (Negative) Urine Urobilinogen (Negative) Ur Leukocyte Esterase (Negative) Urine WBC (Auto) (0-5) /hpf Urine RBC (Auto) (0-4) /hpf U Hyaline Cast (Auto) (0-5) /lpf U Epithel Cells (Auto) (0-5) /lpf Urine Bacteria (Auto) (Negative) Urine Osmolality (500-800) mOsm/kg Ur Random Sodium mmol/L Stl C. cayetanensis PCR (NotDetected) Stool Rotavirus A PCR (NotDetected) Stl Adenov F 40/41 PCR (NotDetected) Stool Astrovirus (PCR) (NotDetected) Stool Campylobacter PCR (NotDetected) Stool Cryptosporidium PCR (NotDetected) Stl E.coli Shiga Tox PCR (NotDetected) Stl Enterotoxigenic E PCR (NotDetected) Stool EPEC (PCR) (NotDetected) Stool EAEC (PCR) (NotDetected) Stl E. histolytica PCR (NotDetected) Stool Giardia Lamblia PCR (NotDetected) Stool Salmonella PCR (NotDetected) Stool Sapovirus (PCR) (NotDetected) Stl P. shigelloides PCR (NotDetected) Stl Shigella/EIEC PCR (NotDetected) St Y.enterocolitica PCR (NotDetected) Stool Vibrio (PCR) (NotDetected) Stl Vibrio cholerae PCR (NotDetected) Stl Norovirus GI/GII PCR (NotDetected) PG Care Time/CCT Total # of Minutes Spent Total Time Spent with Patient: Total time spent is greater than 50% in coordination of care (as documented) at patient's floor/unit and/or counseling patient: Coding Diagnoses Hyponatremia E87.1 Constipation K59.00 CREST variant of scleroderma M34.1 Gastroparesis K31.84
[2022-12-01 08:42] LABS: Albumin Globulin Ratio 1.6 (0.9-2); Albumin Level 4.2 gm/dl (3.4-5.0); BUN Creatinine Ratio 10.8 (10-20); Bilirubin,Total 0.6 mg/dl (0.2-1.0); Calcium 9.2 mg/dl (8.6-10.3); Creatinine Clr Calc Pharmacy 43.9 ml/min; Est GFR (African American) 76.1 ml/min; Est GFR (Non-African American) 65.7 ml/min; Globulin 2.6 gm/dl (2.5-4.0); Magnesium 2.1 mg/dl (1.7-2.4); Total Protein 6.8 gm/dl (6.0-8.3)
[2022-12-01] MEDS ORDERED: POLYETHYLENE (MIRALAX) 17 GM PACK PO SCH ×2 (09:00)
[2022-12-01] MEDS ORDERED: bisacodyL 10 MG SUPP PR SCH (09:00)
--- NOTE | 2022-12-01 10:51 | Discharge Summary ---
Date of Service December 01, 2022 Admission HPI Per Admitting Provider Mercedes is an 82 year old female with a PMH significant for CREST syndrome, chronic constipation, gastroparesis, and GERD who presented to the [facility] ED on 11/30 with complaints of 2.5 weeks of diarrhea and abdominal pain. In the ED, vitals were stable. Labs were significant for a sodium of 127. CT of the abdomen/pelvis w/IV con was read as "1. Moderate colonic stool. 2. No acute findings.". Prior to admission the patient was given 1L NSS. At the time of the exam the patient was sitting in bed in no acute distress. She explains that she has chronic bowel issues due to her gastroparesis and scleroderma. Over the past few weeks she had been feeling as though she was constipated and saw gastroenterology on 11/05. They ordered her a miraLax bowel cleanse, she had multiple episodes of diarrhea after. A KUB was ordered for follow up on 11/17 and was read as "1. Nonobstructive bowel gas pattern. 2. Moderate fecal retention of the left hemicolon.". She was seen at her PCP's office shortly after and was prescribed a different medication that she cannot remember the name to. Her pharmacy did not have the medication on formulary and was given an over the counter medication by the pharmacist, but she does not re member the name. This again cause her to have some diarrhea but no formed stool. She had moderate, dull lower abdominal pain earlier today and again this afternoon, prompting her to come to the ED. She has had 2, well-formed but small bowel movements today. When asked, she states that she has been drinking approximately 4, 16 OZ bottles of water and 2 bottles of Propel over the past 2 weeks to stay hydrated. She denies current fever, chills, headache, changes in vision, hearing, taste, and smell, chest pain, SOB, nausea, vomiting, dysuria, hematuria, melena, LE swelling, and recent trauma. She wishes to be a full code. Please refer to Dr. Souza's attestation for any changes to the treatment plan Admission Exam Per Admitting Provider Physical Exam: General:In no acute distress, stated age, well-nourished, good hygiene HEENT:Normocephalic, atraumatic, no scleral icterus, pupils around round, symmetrical, and reactive to light, moist mucus membranes, trachea midline, no thyromegaly Chest/Pulm:No respiratory distress, symmetrical chest expansion, clear breath sounds throughout Cardiac:RRR, no murmurs noted Abdomen:Negative for ascites and bruising, hypoactive bowel sounds, soft, non-tender to palpation throughout Musculoskeletal:Symmetrical and without signs of acute trauma, upper and lower extremities with full ROM, no atrophy, spasticity, or flaccidity Extremities:Radial, dorsalis pedis, and posterior tibial pulses are intact and symmetrical, no edema noted in the BL LE's Skin:Warm, dry, no rashes , lesions, or scars noted Neuro:Alert and oriented to person, place, month, year, and president, no focal defects, no tremors noted Psych:No acute distress, calm and cooperative during the exam Principal Diagnosis Hyponatremia Discharge Exam General: WN/WD female dressed in room, awaiting hopeful discharge, at bedside HEENT: head normocephalic, atraumatic, mmm, trachea midline Resp: CTA, no w/c/r, on room air CV: RRR, no significant m/r/g, no significant calf tenderness GI: +BS, soft/NT : no thomas MSK/Neuro: no focal deficit, no slurred speech, CN intact grossly Psych: AOx3, cooperative and pleasant, voicing would like to go home if possible Discharge Data Allergies Allergy/AdvReac Type Severity Reaction Status Date / Time codeine Allergy Mild SICK Verified 11/05/22 09:33 hydroxychloroquine Allergy Unknown NIGHT Verified 11/05/22 09:33 SWEATS fluorouracil AdvReac Intermediate HOT FLASHES Verified 11/05/22 09:33 erythromycin base AdvReac Mild GI SYMPTOMS Verified 11/05/22 09:33 meperidine AdvReac Mild GI SYMPTOMS Verified 11/05/22 09:33 esomeprazole AdvReac Unknown HOT FLASHES Verified 11/05/22 09:33 lansoprazole AdvReac Unknown HOT FLASHES Verified 11/05/22 09:33 omeprazole AdvReac Unknown HOT FLASHES Verified 11/05/22 09:33 pantoprazole AdvReac Unknown HOT Verified 11/05/22 09:33 FLASHES AND HYPER Consultations 11/30/22 21:23 ED Decision to Admit Stat Ordered Studies Abdomen/Pelvis CT 11/30/22 18:30 Exam(s): CT ABDOMEN + PELVIS With Contrast IV Amt: 92 ml optiray 320 EXAM: CT Abdomen and Pelvis With Intravenous Contrast CLINICAL HISTORY: Reason for exam: abd pain. TECHNIQUE: Axial computed tomography images of the abdomen and pelvis with intravenous contrast. CTDI is 10.32 mGy and DLP is 433.73 mGy-cm. Automated exposure control was utilized for the study. A dose lowering technique was utilized adhering to the principles of ALARA. CONTRAST: Patient received 92 ml optiray 320 of IV contrast COMPARISON: 01/14/22 FINDINGS: Lung bases: Clear lung bases. ABDOMEN: Liver: Benign inferior left hepatic lobe cyst. Liver otherwise unremarkable. Gallbladder and bile ducts: Unremarkable. No calcified gallstones. No evidence of cholecystitis or biliary dilatation. Pancreas: Unremarkable. No mass. No ductal dilation. Spleen: Unremarkable. No splenomegaly. Adrenals: Unremarkable. No mass. Kidneys and ureters: Symmetric renal enhancement. No hydronephrosis. Exophytic right kidney lower pole cyst measuring 7.7 cm; no further follow-up required. Stomach and bowel: Unremarkable. No mucosal thickening. No bowel obstruction. PELVIS: Appendix: Normal appendix. Bladder: Unremarkable. Normal urinary bladder. Reproductive: Hysterectomy. ABDOMEN and PELVIS: Intraperitoneal space: Unremarkable. No free air. No significant fluid collection. Bones/joints: No acute fracture or dislocation. Soft tissues: Unremarkable. Vasculature: Atherosclerosis. No aortic aneurysm. Lymph nodes: Unremarkable. No enlarged lymph nodes. IMPRESSION: 1. Moderate colonic stool. 2. No acute findings. Electronically signed by: Tiffanie Flores M.D. 11/30/22 20:12 PM Hospital Course (1) Hyponatremia: Na 127 on admission w/ reports of abdominal pain/diarrhea Reported miralax/bowel medications for her gastroparesis/chronic constipation/diarrhea issues and follows w/ [facility] and was having increased PO water intake (reports typically only water drinker at baseline) Urine osm 449, urine Na 135. Serum Osm 287 Given 1L NSS on admission Repeat Na 135 --> 134 on AM labs Patient feeling better/wanting to go home. Discussed drinking fluids w/ electrolytes to prevent issues in the future. Repeat labs next week to ensure remains stable. If further drop/low again, further eval required/cortisol. Of note, did add TSH to labs prior to discharge, pending at time of discharge. (2) Constipation: Chronic constipation, overflow diarrhea from constipation Follows C for gastroparesis, home meds to resume at discharge Stool studies/PCR/cdiff negative No further abd pain reported (3) CREST variant of scleroderma: Daily pantoprazole while inpatient however unable to tolerate protonix and utilizes domperidone at home (resume at discharge) (4) Gastroparesis: Continue bowel regimen , follow up laxmi as typically follows Plan Patient with symptoms resolved and wanting to go home. Na improved/stable and encouraged PO electrolyte intake. Repeat labs provided to have drawn on Tuesday, TSH pending at discharge given chronic constipation/no prior TSH in system to r/o other causes of hyponatremia F/u PCP 7-10 days from discharge Total Time Total Time Spent Total Time Spent (In Minutes): 45 Discharge Plan Discharge Items Patient Disposition: Home - Self-Care Reason For Visit: HYPONATREMIA, COLONIC CONSTIPATION Discharge Diagnosis: Hyponatremia Goals: You have been hospitalized for an acute medical problem. During your stay at [facility], we have made an effort to correct the problem that brought you to the hospital while keeping you as comfortable as possible. Medications were used to bring your condition under control and your discharge instructions will include directions for any medications you should take after leaving the hospital. Please make sure you see your Primary Care Provider as part of your follow up plan. Activity: As commented below Non-emergency contact: Primary Care Provider Call non-emergency contact if: you have any medication questions, your symptoms worsen, your pain is not controlled and you have a fever Follow-up/Referrals: Shanita Graham DO [Primary Care Provider] - 12/09/22 9:05 am ([facility]; WITH DR CARTY) Diet: Regular Ambulatory Orders: Basic Metabolic Panel (Routine) Timeframe: 20221206 Location: Determined by Patient Ordered By: Zuleika Torres Attending Provider Instructions: You have been hospitalized and found to have low sodium level which was likely from increased water intake along with diarrheal losses. Stool testing has been negative. Repeat sodium levels have improved but stayed level at 134. Given resolution in symptoms, we are recommending you limit regular water at discharge and incorporate more Gatorade/powerade with electrolytes to ensure you stay hydrated. We have provided repeat lab slips to check on your sodium level for Tuesday, but if remains low despite changing your water intake, further evaluation/testing may be required. Please follow up with primary care in the next 7-10 days to monitor your status. Please return to the ER with any worsening diarrhea, fevers, chest pain, shortness of breath or for any other symptoms concerning for you. It has been a pleasure being a part of the medical team providing for you while you have been in the hospital. Take care! Pending Studies at Discharge: No Stand-Alone Forms: My [facility], Smoking Cessation Medications and DC Order Prescriptions: Continued cranberry 500 mg capsule 500 mg PO BID Rx Instructions: administer with meals multivitamin Tablet 1 tab PO QAM famotidine [Pepcid] 20 mg Tablet 20 mg PO HS cyanocobalamin (vitamin B-12) [Vitamin B-12] 500 mcg Tablet 500 mcg PO DAILY Rx Instructions: pt is unsure of dose polyethylene glycol 3350 [Miralax] 17 gram/dose Powder 17 g PO DAILY Rx Instructions: just starting taking everyday cholecalciferol (vitamin D3) [Vitamin D3] 2,000 unit Tablet 2,000 unit PO QAM calcium-vitamin D3-vitamin K [Citracal-D3 Soft Chew] 500 mg-1,000 unit-40 mcg Tablet,Chewable 1 tab PO DAILY Domperidone 1 dose PO TID Rx Instructions: 10 mg ascorbate calcium (vitamin C) 500 mg Tablet 500 mg PO DAILY rabeprazole [AcipHex] 20 mg tablet,delayed release (DR/EC) See Rx Instructions .ROUTE .COMPLEX Rx Instructions: take 1 tablet by mouth twice a day Discharge Orders: Discharge Order (Routine); Ordered 12/01/22 Ordered By: Zuleika Acevedo/Other Patient Handouts: Hyponatremia Dc Admission Data Admit Date/Time: 11/30/22 20:40 Attending Provider: Lenin oM Admit Provider: Sole Souza Primary Care Provider: Shanita Graham Other Providers: Sole Souza Other Interventions: Discharge Summary Assessment (RN) Last Done: 12/01/22 11:48 Supervising Physician Co-Signing Physician Notes The patient was not seen by me. The chart was reviewed. Case discussed with HERMES Keller. Agree with assessment and plan Coding Level of Care Code 57952 INP/OBS DISCH >30 MIN Diagnoses Hyponatremia E87.1 Constipation K59.00 CREST variant of scleroderma M34.1 Gastroparesis K31.84
== END 2022-12-01 13:15 | disposition home or self-care (01) ==
LOC: ED 14:20 → SUATTDRO 20:40 → INTOOBSV 20:40 → 3N 20:40